=== PATIENT | female | born 1945 | race Caucasian/White ===

== ENCOUNTER 2022-11-14 14:01 | Inpatient (IN) | payer OTHER ==
[~2022-11-14] VITALS: Ht 162.6 cm; Wt 136.0 kg
[2022-11-14] MEDS ORDERED: dilTIAZem 25 MG/5 ML VIAL IV ONE (14:15)
[2022-11-14] MEDS ORDERED: ONDANSETRON HCL 4 MG/2 ML VIAL IV ONE (14:15)
[2022-11-14 14:59] LABS: Basophils # (auto) 0.1 10 ^3/uL (0-0.2); Basophils % (auto) 0.8 % (0.0-2.0); Eosinophils # (auto) 0.2 10 ^3/uL (0-0.8); Eosinophils % (auto) 2.2 % (0.0-7.0); Hematocrit 44.8 % (36.0-46.0); Hemoglobin 14.7 g/dL (12.2-16.2); Lymphocytes # (auto) 1.6 10 ^3/uL (0.4-5.4); Lymphocytes % (auto) 17.1 % (10.0-50.0); Mean Corpuscular Hemoglobin 28.5 pg (28.0-32.0); Mean Corpuscular Hgb Conc. 32.7 g/dL (32.0-36.0); Mean Corpuscular Volume 87.3 fL (80.0-100.0); Monocytes # (auto) 0.8 10 ^3/uL (0-1.3); Neutrophils # (auto) 6.7 10 ^3/uL (1.6-8.6); Neutrophils % (auto) 70.9 % (37.0-80.0); Nucleated Red Blood Cells % 0.1 %; Red Blood Cells 5.14 10^6/uL (4.0-5.20); Red Cell Distribution Width 13.9 % (11.8-14.3); White Blood Cell 9.5 10^3/uL (4.4-10.8)
[2022-11-14] MEDS ORDERED: METOPROLOL TARTRATE 1MG/1ML-5ML VIAL IV ONE (15:00)
[2022-11-14 15:06] LABS: Albumin 3.1 g/dL (3.4-5.0); Calcium 8.7 mg/dL (8.5-10.1); Magnesium 2.4 mg/dL (1.6-2.6); Potassium 5.1 mmol/L (3.5-5.1)
[2022-11-14 15:10] LABS: BUN/Creatinine Ratio 33.7 (10.0-20.0); Bilirubin, Total 0.9 mg/dL (0.2-1.0); CRP High Sensitivity 0.9 mg/dL (< 0.3); Total Protein 6.9 g/dL (6.4-8.2)
[2022-11-14 15:13] LABS: Lactic Acid w/Reflex 2.3 mmol/L (0.4-2.0)
[2022-11-14] MEDS ORDERED: dilTIAZem 125mg/125ml BAG KIT 125 ML IV ONE (15:15)
[2022-11-14 16:04] LABS: Urine Bacteria NONE SEEN /hpf (None Seen); Urine Blood Negative /uL (Negative); Urine Mucus FEW (None Seen); Urine Specific Gravity 1.031 (1.001-1.035); Urine WBC 6 /hpf (0 - 5)
[2022-11-14] MEDS ORDERED: ASPirin 81 mg TAB PO ONE (16:15)
[2022-11-14] MEDS ORDERED: AMIODARONE HCL 150 MG in D5W 5% 100 ML IV ONE (17:15)
[2022-11-14] MEDS ORDERED: AMIODARONE 450mg/250ml AE 250 ML IV SCH (17:30)
[2022-11-14] MEDS ORDERED: FUROSEMIDE 20 MG/2 ML VIAL IV SCH (18:15)
[2022-11-14] MEDS ORDERED: NITROGLYCERIN 0.4 MG SL TAB SL PRN (18:15)
[2022-11-14] MEDS ORDERED: MORPHINE SULFATE INJ 2 MG/ml SYRG IV PRN (18:15)
[2022-11-14] MEDS ORDERED: MET25T PO (19:09)
[2022-11-14] MEDS ORDERED: ATO40T PO (19:09)
[2022-11-14] MEDS ORDERED: DEXTROSE (50%) 50ML SYRG IV PRN (19:15)
[2022-11-14 19:48] LABS: Cholesterol 150 mg/dL (< 200)
[2022-11-14 19:50] LABS: HDL Cholesterol 48 mg/dL (40-59); LDL Cholesterol 84 mg/dL (< 100); Triglycerides 127 mg/dL (< 150)
[2022-11-14 20:04] LABS: INR 0.97 (0.9-1.15)
[2022-11-14] MEDS ORDERED: ONDANSETRON HCL 4 MG/2 ML VIAL IM ONE (21:00)
[2022-11-14] MEDS: SODIUM CHLORIDE 0.9% 1,000 ML IV SCH (21:01)
[2022-11-14] MEDS ORDERED: TAMSULOSIN HYDROCHLORIDE 0.4 MG CAP PO ONE (21:15)
[2022-11-14] MEDS ORDERED: IOHEXOL 350 MG/ML 100ML IJ ONE (21:35)
[2022-11-14] MEDS: ACCU-CHEK COMFORT CURVE STRIP VI SCH (22:06)
[2022-11-14] MEDS: InsuLIN REG 1unit/0.01ml Soln (100units/ml) SC SCH (22:16)
[2022-11-14] MEDS: ENOXAPARIN SOD 120 MG/0.8 ML SYRINGE SC SCH (22:44)
[2022-11-14] MEDS: AMIODARONE 450mg/250ml AE 250 ML IV SCH (23:30)
[2022-11-15] VITALS (8 sets, daily range): BP systolic 109–135; BP diastolic 56–96
[2022-11-15] MEDS ORDERED: APIX5TAB PO (03:19)
[2022-11-15] MEDS ORDERED: METF-372 PO (03:19)
[2022-11-15] MEDS: ACCU-CHEK COMFORT CURVE STRIP VI SCH ×4 (06:33→21:33)
[2022-11-15] MEDS: InsuLIN REG 1unit/0.01ml Soln (100units/ml) SC SCH ×4 (06:36→21:55)
[2022-11-15 06:38] LABS: Albumin 3.1 g/dL (3.4-5.0); Calcium 8.6 mg/dL (8.5-10.1); Potassium 4.1 mmol/L (3.5-5.1)
[2022-11-15 06:42] LABS: BUN/Creatinine Ratio 29.9 (10.0-20.0); Bilirubin, Total 1.1 mg/dL (0.2-1.0); Total Protein 6.3 g/dL (6.4-8.2)
[2022-11-15 06:51] LABS: Basophils # (auto) 0.1 10 ^3/uL (0-0.2); Basophils % (auto) 0.5 % (0.0-2.0); Eosinophils # (auto) 0.1 10 ^3/uL (0-0.8); Eosinophils % (auto) 0.6 % (0.0-7.0); Hematocrit 40.1 % (36.0-46.0); Hemoglobin 13.2 g/dL (12.2-16.2); Lymphocytes # (auto) 1.4 10 ^3/uL (0.4-5.4); Lymphocytes % (auto) 11.3 % (10.0-50.0); Mean Corpuscular Hemoglobin 28.5 pg (28.0-32.0); Mean Corpuscular Volume 86.3 fL (80.0-100.0); Monocytes # (auto) 1.3 10 ^3/uL (0-1.3); Monocytes % (auto) 10.6 % (0.0-12.0); Neutrophils # (auto) 9.3 10 ^3/uL (1.6-8.6); Red Blood Cells 4.64 10^6/uL (4.0-5.20); Red Cell Distribution Width 13.7 % (11.8-14.3)
[2022-11-15] MEDS ORDERED: DIGOXIN (250MCG/ML) 2 ML AMPULE IV ONE (08:00)
[2022-11-15] MEDS ORDERED: hydrALAZINE HCL 20 MG/ML VL IV PRN (10:00)
[2022-11-15] MEDS: FUROSEMIDE 40 MG/4 ML VIAL IV SCH (11:28)
[2022-11-15] MEDS: PANTOPRAZOLE 40 MG/10 ML VIAL INJ IV SCH (11:36)
[2022-11-15] MEDS: POTASSIUM CHLORIDE 8 MEQ TAB PO SCH (11:37)
[2022-11-15] MEDS: ASPirin 81 mg TAB PO SCH (11:38)
[2022-11-15] MEDS: ENOXAPARIN SOD 120 MG/0.8 ML SYRINGE SC SCH ×2 (11:42→21:33)
[2022-11-15] MEDS: SODIUM CHLORIDE 0.9% 1,000 ML IV SCH (11:50)
[2022-11-15] MEDS ORDERED: METOPROLOL TARTRATE 1MG/1ML-5ML VIAL IV ONE (17:15)
[2022-11-15] MEDS: AMIODARONE 450mg/250ml AE 250 ML IV SCH ×2 (17:15→23:38)
[2022-11-16] MEDS: SODIUM CHLORIDE 0.9% 1,000 ML IV SCH ×2 (03:35→20:15)
[2022-11-16 05:00] VITALS: BP_SYST 129; BP_SYST 149; BP_DIAS 64; BP_DIAS 70
[2022-11-16 05:55] LABS: Basophils # (auto) 0.1 10 ^3/uL (0-0.2); Basophils % (auto) 0.6 % (0.0-2.0); Eosinophils # (auto) 0.1 10 ^3/uL (0-0.8); Eosinophils % (auto) 1.1 % (0.0-7.0); Hematocrit 38.8 % (36.0-46.0); Hemoglobin 12.9 g/dL (12.2-16.2); Lymphocytes # (auto) 1.3 10 ^3/uL (0.4-5.4); Lymphocytes % (auto) 9.5 % (10.0-50.0); Mean Corpuscular Hemoglobin 28.4 pg (28.0-32.0); Mean Corpuscular Hgb Conc. 33.3 g/dL (32.0-36.0); Mean Corpuscular Volume 85.3 fL (80.0-100.0); Monocytes # (auto) 1.3 10 ^3/uL (0-1.3); Monocytes % (auto) 9.8 % (0.0-12.0); Neutrophils # (auto) 10.5 10 ^3/uL (1.6-8.6); Red Blood Cells 4.54 10^6/uL (4.0-5.20); Red Cell Distribution Width 13.6 % (11.8-14.3); White Blood Cell 13.3 10^3/uL (4.4-10.8)
[2022-11-16 06:19] LABS: BUN/Creatinine Ratio 24.8 (10.0-20.0); Calcium 8.8 mg/dL (8.5-10.1); Potassium 3.8 mmol/L (3.5-5.1)
[2022-11-16] MEDS: ACCU-CHEK COMFORT CURVE STRIP VI SCH ×4 (06:37→21:50)
[2022-11-16] MEDS: InsuLIN REG 1unit/0.01ml Soln (100units/ml) SC SCH ×4 (06:37→21:51)
[2022-11-16 08:52] VITALS: BP 138/66
[2022-11-16] MEDS ORDERED: TRAZ-228 PO (09:02)
[2022-11-16] MEDS ORDERED: GLIP10TA21 PO (09:02)
[2022-11-16] MEDS ORDERED: LISI-285 PO (09:02)
[2022-11-16] MEDS ORDERED: ATOR40TA52 PO (09:02)
[2022-11-16] MEDS ORDERED: DOCU-265 PO (09:02)
[2022-11-16] MEDS ORDERED: HYDROcodone-ACET 5/325MG TAB PO PRN (09:15)
[2022-11-16] MEDS: POTASSIUM CHLORIDE 8 MEQ TAB PO SCH (09:19)
[2022-11-16] MEDS: PANTOPRAZOLE 40 MG/10 ML VIAL INJ IV SCH (09:19)
[2022-11-16] MEDS: ASPirin 81 mg TAB PO SCH (09:19)
[2022-11-16] MEDS: FUROSEMIDE 40 MG/4 ML VIAL IV SCH (09:20)
[2022-11-16] MEDS: ENOXAPARIN SOD 120 MG/0.8 ML SYRINGE SC SCH ×2 (09:20→21:43)
[2022-11-16 10:09] LABS: Albumin 2.7 g/dL (3.4-5.0)
[2022-11-16 10:12] LABS: Bilirubin, Direct 0.5 mg/dL (0-0.2); Bilirubin, Total 1.3 mg/dL (0.2-1.0); Total Protein 5.9 g/dL (6.4-8.2)
[2022-11-16 10:23] LABS: Hepatitis B Surface Antibody Negative (Negative)
[2022-11-16] MEDS: DOXYCYCLINE 100MG/250ML 250 ML IV SCH ×2 (11:04→21:42)
[2022-11-16 13:00] VITALS: BP 122/63
[2022-11-16 13:59] LABS: Hepatitis B Core IgM Negative
[2022-11-16 14:00] LABS: Hepatitis C Antibody Negative (Negative)
[2022-11-16] MEDS ORDERED: DIGOXIN (250MCG/ML) 2 ML AMPULE IV ONE (14:45)
[2022-11-16] MEDS ORDERED: metOLazone 5 MG TAB PO ONE (14:45)
[2022-11-16] MEDS: AMIODARONE 450mg/250ml AE 250 ML IV SCH (16:33)
[2022-11-16 16:48] LABS: Hepatitis A Ab IgM Negative
[2022-11-16 17:13] VITALS: BP 140/65
[2022-11-16 20:00] VITALS: BP 129/60
[2022-11-16 22:00] VITALS: BP 129/60
[2022-11-17 04:56] VITALS: BP 126/71
[2022-11-17 05:40] LABS: Basophils # (auto) 0.1 10 ^3/uL (0-0.2); Basophils % (auto) 1.2 % (0.0-2.0); Eosinophils # (auto) 0.2 10 ^3/uL (0-0.8); Eosinophils % (auto) 1.7 % (0.0-7.0); Hematocrit 39.8 % (36.0-46.0); Hemoglobin 13.3 g/dL (12.2-16.2); Lymphocytes # (auto) 1.7 10 ^3/uL (0.4-5.4); Lymphocytes % (auto) 14.5 % (10.0-50.0); Mean Corpuscular Hemoglobin 28.4 pg (28.0-32.0); Mean Corpuscular Hgb Conc. 33.4 g/dL (32.0-36.0); Mean Corpuscular Volume 84.8 fL (80.0-100.0); Monocytes # (auto) 1.6 10 ^3/uL (0-1.3); Monocytes % (auto) 13.2 % (0.0-12.0); Neutrophils # (auto) 8.2 10 ^3/uL (1.6-8.6); Neutrophils % (auto) 69.4 % (37.0-80.0); Red Cell Distribution Width 13.7 % (11.8-14.3); White Blood Cell 11.9 10^3/uL (4.4-10.8)
[2022-11-17 05:57] LABS: Albumin 2.4 g/dL (3.4-5.0); Calcium 8.9 mg/dL (8.5-10.1); Potassium 3.6 mmol/L (3.5-5.1)
[2022-11-17 06:01] LABS: BUN/Creatinine Ratio 16.4 (10.0-20.0); Bilirubin, Total 1.4 mg/dL (0.2-1.0); Total Protein 5.9 g/dL (6.4-8.2)
[2022-11-17] MEDS: ACCU-CHEK COMFORT CURVE STRIP VI SCH ×2 (06:08→11:45)
[2022-11-17] MEDS: InsuLIN REG 1unit/0.01ml Soln (100units/ml) SC SCH ×2 (06:16→11:47)
[2022-11-17] MEDS: AMIODARONE 450mg/250ml AE 250 ML IV SCH (07:16)
[2022-11-17 09:00] VITALS: BP 109/57
[2022-11-17] MEDS ORDERED: DOXY-286 PO (09:40)
[2022-11-17] MEDS ORDERED: FURO1TAB31 PO (09:40)
[2022-11-17] MEDS ORDERED: DIGO0.2525 PO (09:40)
[2022-11-17] MEDS ORDERED: POTA8TAB38 PO (09:40)
[2022-11-17] MEDS ORDERED: AMIO200T33 PO (09:40)
[2022-11-17] MEDS: PANTOPRAZOLE 40 MG/10 ML VIAL INJ IV SCH (09:47)
[2022-11-17] MEDS: ASPirin 81 mg TAB PO SCH (09:48)
[2022-11-17] MEDS: FUROSEMIDE 40 MG/4 ML VIAL IV SCH (09:48)
[2022-11-17] MEDS: POTASSIUM CHLORIDE 8 MEQ TAB PO SCH (09:48)
[2022-11-17] MEDS: ENOXAPARIN SOD 120 MG/0.8 ML SYRINGE SC SCH (09:48)
[2022-11-17] MEDS: DOXYCYCLINE 100MG/250ML 250 ML IV SCH (09:49)
[2022-11-17] MEDS: SODIUM CHLORIDE 0.9% 1,000 ML IV SCH (12:55)
[2022-11-17 13:02] VITALS: BP 109/57
[2022-11-17 14:30] VITALS: BP 115/66
== END 2022-11-17 12:14 | disposition hospice, home (50) | DRG 280 ==
LOC: EDBD 14:01 → ER 14:01 → TELE 19:09 → TELE-EAST 23:57
PROVIDERS: ADMIT Registered Nurse; ATTEND Internal Medicine
DX: I48.91 Unspecified atrial fibrillation (principal); I26.99 Other pulmonary embolism without acute cor pulmonale; I21.A1 Myocardial infarction type 2; N17.0 Acute kidney failure with tubular necrosis; L03.116 Cellulitis of left lower limb; N20.2 Calculus of kidney with calculus of ureter; Z68.43 Body mass index [BMI] 50.0-59.9, adult; E11.9 Type 2 diabetes mellitus without complications; E66.01 Morbid (severe) obesity due to excess calories; E78.5 Hyperlipidemia, unspecified; E86.0 Dehydration; I11.0 Hypertensive heart disease with heart failure; K42.9 Umbilical hernia without obstruction or gangrene; R09.02 Hypoxemia; I08.1 Rheumatic disorders of both mitral and tricuspid valves; I50.82 Biventricular heart failure; Z51.5 Encounter for palliative care; Z87.442 Personal history of urinary calculi; Z90.49 Acquired absence of other specified parts of digestive tract; Z79.01 Long term (current) use of anticoagulants; Z79.899 Other long term (current) drug therapy
CPT/HCPCS: 36415; 71045; 71275; 74176; 76604; 80048; 80053; 80061; 80076; 81001; 82962; 83036; 83605; 83735; 83880; 84443; 84484; 85025; 85379; 85610; 85730; 86141; 86705; 86706; 86709; 86803; 87040; 87340; 93005; 93306; 93970; 96365; 96366; 96367; 96375; C9113; G0378; J1815; J2405; J3490; J7060

== ENCOUNTER 2022-11-17 18:41 | Inpatient (IN) | payer OTHER ==
[~2022-11-17] VITALS: Ht 154.9 cm; Wt 58.6 kg
[~2022-11-17 18:41] MED LIST: AMIO200T33 PO; APIX5TAB PO; ATO40T PO; DIGO0.2525 PO; DOCU-265 PO; DOXY-286 PO; FURO1TAB31 PO; GLIP10TA21 PO; LISI-285 PO; MET25T PO; POTA8TAB38 PO; TRAZ-228 PO
[2022-11-17] MEDS ORDERED: MORPHINE SULFATE INJ 2 MG/ml SYRG IV ONE ×3 (19:15→23:00)
[2022-11-17 19:28] LABS: Basophils # (auto) 0.1 10 ^3/uL (0-0.2); Basophils % (auto) 0.7 % (0.0-2.0); Eosinophils # (auto) 0.3 10 ^3/uL (0-0.8); Eosinophils % (auto) 1.9 % (0.0-7.0); Hematocrit 45.2 % (36.0-46.0); Hemoglobin 15.1 g/dL (12.2-16.2); Lymphocytes # (auto) 3.5 10 ^3/uL (0.4-5.4); Lymphocytes % (auto) 23.6 % (10.0-50.0); Mean Corpuscular Hemoglobin 28.3 pg (28.0-32.0); Mean Corpuscular Hgb Conc. 33.3 g/dL (32.0-36.0); Mean Corpuscular Volume 84.9 fL (80.0-100.0); Monocytes # (auto) 2.1 10 ^3/uL (0-1.3); Neutrophils % (auto) 59.8 % (37.0-80.0); Nucleated Red Blood Cells % 0.1 %; Red Blood Cells 5.33 10^6/uL (4.0-5.20); Red Cell Distribution Width 13.5 % (11.8-14.3)
[2022-11-17 19:39] LABS: Calcium 9.3 mg/dL (8.5-10.1); Magnesium 1.9 mg/dL (1.6-2.6); Potassium 3.7 mmol/L (3.5-5.1)
[2022-11-17 19:51] LABS: BUN/Creatinine Ratio 16.7 (10.0-20.0); Bilirubin, Total 1.4 mg/dL (0.2-1.0); Total Protein 7.1 g/dL (6.4-8.2)
[2022-11-17 20:02] LABS: INR 1.1 (0.9-1.15); Partial Thromboplastin Time 33.8 sec (24.6-33.4)
[2022-11-17] MEDS ORDERED: NITROGLYCERIN 0.4 MG SL TAB SL ONE (20:15)
[2022-11-17] MEDS ORDERED: ASPirin 325 MG TAB PO ONE (21:00)
[2022-11-17] MEDS ORDERED: dilTIAZem 25 MG/5 ML VIAL IV ONE (21:00)
[2022-11-17] MEDS ORDERED: MORPHINE SULFATE INJ 2 MG/ml SYRG ONE (21:12)
[2022-11-17] MEDS ORDERED: dilTIAZem 125mg/125ml BAG KIT 125 ML IV ONE (21:15)
[2022-11-17] MEDS: dilTIAZem 125mg/125ml BAG KIT 125 ML IV SCH (21:20)
[2022-11-17] MEDS ORDERED: MORPHINE SULFATE 4 MG/ML SYR/VIAL ONE (21:32)
[2022-11-17] MEDS ORDERED: ONDANSETRON HCL 4 MG/2 ML VIAL ONE (21:33)
[2022-11-17] MEDS ORDERED: LORazepam 2MG/ML-1ML VIAL ONE (21:35)
[2022-11-17] MEDS: LORazepam 2MG/ML-1ML VIAL IV PRN (21:42)
[2022-11-17] MEDS: MORPHINE SULFATE 4 MG/ML SYR/VIAL IV PRN (21:42)
[2022-11-18] MEDS ORDERED: MORPHINE SULFATE INJ 2 MG/ml SYRG IV PRN (01:00)
[2022-11-18] MEDS ORDERED: cefTRIAXone 1GM/50ML D5W 50 ML IV ONE (01:00)
[2022-11-18] MEDS ORDERED: AZITHROMYCIN 500MG/ 250ML 250 ML IV ONE (01:00)
[2022-11-18] MEDS ORDERED: DEXTROSE (50%) 50ML SYRG IV PRN (01:00)
[2022-11-18] MEDS ORDERED: DOCUSATE SOD 100 MG CAP PO PRN (01:00)
[2022-11-18] MEDS ORDERED: NITROGLYCERIN 0.4 MG SL TAB SL PRN (01:00)
[2022-11-18] MEDS: LORazepam 2MG/ML-1ML VIAL IV PRN (01:45)
[2022-11-18] MEDS: MORPHINE SULFATE 4 MG/ML SYR/VIAL IV PRN (01:46)
[2022-11-18] MEDS ORDERED: ONDANSETRON HCL 4 MG/2 ML VIAL IV ONE (02:00)
[2022-11-18 04:06] LABS: Basophils # (auto) 0.2 10 ^3/uL (0-0.2); Eosinophils # (auto) 0 10 ^3/uL (0-0.8); Eosinophils % (auto) 0.2 % (0.0-7.0); Lymphocytes # (auto) 0.9 10 ^3/uL (0.4-5.4); Lymphocytes % (auto) 6.2 % (10.0-50.0); Mean Corpuscular Hemoglobin 28.2 pg (28.0-32.0); Mean Corpuscular Hgb Conc. 33.4 g/dL (32.0-36.0); Mean Corpuscular Volume 84.6 fL (80.0-100.0); Monocytes # (auto) 1.2 10 ^3/uL (0-1.3); Monocytes % (auto) 7.9 % (0.0-12.0); Neutrophils # (auto) 12.9 10 ^3/uL (1.6-8.6); Neutrophils % (auto) 84.7 % (37.0-80.0); Nucleated Red Blood Cells % 0.2 %; Red Blood Cells 4.96 10^6/uL (4.0-5.20); Red Cell Distribution Width 13.7 % (11.8-14.3); White Blood Cell 15.2 10^3/uL (4.4-10.8)
[2022-11-18 04:22] LABS: Albumin 2.7 g/dL (3.4-5.0); Calcium 8.5 mg/dL (8.5-10.1); Potassium 4.2 mmol/L (3.5-5.1)
[2022-11-18 04:26] LABS: BUN/Creatinine Ratio 17.8 (10.0-20.0); Bilirubin, Total 0.9 mg/dL (0.2-1.0); Total Protein 6.6 g/dL (6.4-8.2)
[2022-11-18] MEDS: SODIUM CHLOR 0.9% PF (SALINE LOCK) 10ML VIAL/SYR IV SCH ×3 (06:13→22:13)
[2022-11-18] MEDS: dilTIAZem 125mg/125ml BAG KIT 125 ML IV SCH (07:12)
[2022-11-18] MEDS: ACCU-CHEK COMFORT CURVE STRIP VI SCH ×4 (07:24→22:20)
[2022-11-18] MEDS: InsuLIN REG 1unit/0.01ml Soln (100units/ml) SC SCH ×4 (07:28→22:20)
[2022-11-18] MEDS: cefTRIAXone 1GM/50ML D5W 50 ML IV SCH (09:35)
[2022-11-18] MEDS ORDERED: CARVEDILOL 3.125 MG TAB PO SCH (10:00)
[2022-11-18] MEDS: AZITHROMYCIN 500MG/ 250ML 250 ML IV SCH (10:05)
[2022-11-18] MEDS: ASPirin 81 mg TAB PO SCH (10:05)
[2022-11-18] MEDS: FUROSEMIDE 40 MG/4 ML VIAL IV SCH (10:05)
[2022-11-18] MEDS: HEPARIN SODIUM (PORCINE) 5000 UNITS/ML 1ML VIAL SC SCH ×2 (10:12→22:16)
[2022-11-18] MEDS: ONDANSETRON HCL 4 MG/2 ML VIAL IV PRN ×2 (10:17→15:15)
[2022-11-18] MEDS ORDERED: AMIODARONE HCL 150 MG in D5W 5% 100 ML IV ONE (13:15)
[2022-11-18] MEDS ORDERED: AMIODARONE 450mg/250ml AE 250 ML IV SCH (13:30)
[2022-11-18 17:00] VITALS: BP 109/79
[2022-11-18 17:15] VITALS: BP 109/79
[2022-11-18] MEDS: AMIODARONE 450mg/250ml AE 250 ML IV SCH (19:30)
[2022-11-18 22:00] VITALS: BP 154/83
[2022-11-19] MEDS ORDERED: METOPROLOL TARTRATE 1MG/1ML-5ML VIAL IV ONE (03:30)
[2022-11-19 05:00] VITALS: BP 115/76
[2022-11-19 05:22] LABS: Albumin 2.4 g/dL (3.4-5.0); Calcium 8.6 mg/dL (8.5-10.1); Potassium 3.5 mmol/L (3.5-5.1)
[2022-11-19 05:27] LABS: BUN/Creatinine Ratio 22.8 (10.0-20.0); Bilirubin, Total 0.8 mg/dL (0.2-1.0); Total Protein 6.4 g/dL (6.4-8.2)
[2022-11-19 05:31] LABS: Basophils # (auto) 0.1 10 ^3/uL (0-0.2); Basophils % (auto) 0.5 % (0.0-2.0); Eosinophils # (auto) 0.4 10 ^3/uL (0-0.8); Eosinophils % (auto) 2.7 % (0.0-7.0); Hematocrit 41.2 % (36.0-46.0); Hemoglobin 13.8 g/dL (12.2-16.2); Lymphocytes # (auto) 1.5 10 ^3/uL (0.4-5.4); Lymphocytes % (auto) 11.5 % (10.0-50.0); Mean Corpuscular Hemoglobin 28.4 pg (28.0-32.0); Mean Corpuscular Hgb Conc. 33.5 g/dL (32.0-36.0); Mean Corpuscular Volume 84.8 fL (80.0-100.0); Monocytes # (auto) 1.8 10 ^3/uL (0-1.3); Monocytes % (auto) 13.7 % (0.0-12.0); Neutrophils # (auto) 9.5 10 ^3/uL (1.6-8.6); Neutrophils % (auto) 71.6 % (37.0-80.0); Nucleated Red Blood Cells % 0.1 %; Red Blood Cells 4.86 10^6/uL (4.0-5.20); Red Cell Distribution Width 13.5 % (11.8-14.3); White Blood Cell 13.3 10^3/uL (4.4-10.8)
[2022-11-19] MEDS: SODIUM CHLOR 0.9% PF (SALINE LOCK) 10ML VIAL/SYR IV SCH ×3 (06:18→21:49)
[2022-11-19] MEDS: ACCU-CHEK COMFORT CURVE STRIP VI SCH ×4 (06:18→21:56)
[2022-11-19] MEDS: InsuLIN REG 1unit/0.01ml Soln (100units/ml) SC SCH ×4 (06:23→22:02)
[2022-11-19] MEDS: cefTRIAXone 1GM/50ML D5W 50 ML IV SCH (08:46)
[2022-11-19] MEDS: HYDROcodone-ACET 5/325MG TAB PO PRN ×2 (08:47→16:48)
[2022-11-19] MEDS: AMIODARONE 450mg/250ml AE 250 ML IV SCH (08:54)
[2022-11-19 09:00] VITALS: BP 135/72
[2022-11-19] MEDS: ASPirin 81 mg TAB PO SCH (10:54)
[2022-11-19] MEDS: AZITHROMYCIN 500MG/ 250ML 250 ML IV SCH (10:54)
[2022-11-19] MEDS: FUROSEMIDE 40 MG/4 ML VIAL IV SCH (10:54)
[2022-11-19] MEDS: HEPARIN SODIUM (PORCINE) 5000 UNITS/ML 1ML VIAL SC SCH ×2 (11:07→21:56)
[2022-11-19] MEDS ORDERED: DIGOXIN (250MCG/ML) 2 ML AMPULE IV ONE (11:45)
[2022-11-19] MEDS ORDERED: METOPROLOL TARTRATE 25 MG TAB PO ONE (11:51)
[2022-11-19 12:30] VITALS: BP 163/84
[2022-11-19] MEDS ORDERED: DIGOXIN 0.25 MG TAB PO ONE (12:45)
[2022-11-19 18:16] VITALS: BP 114/77
[2022-11-19] MEDS: METOPROLOL TARTRATE 25 MG TAB PO SCH (21:49)
[2022-11-19 22:00] VITALS: BP 100/36
[2022-11-20] MEDS: AMIODARONE 450mg/250ml AE 250 ML IV SCH (01:58)
[2022-11-20 05:00] VITALS: BP 126/60
[2022-11-20] MEDS: SODIUM CHLOR 0.9% PF (SALINE LOCK) 10ML VIAL/SYR IV SCH ×3 (06:42→21:40)
[2022-11-20] MEDS: ACCU-CHEK COMFORT CURVE STRIP VI SCH ×4 (06:44→21:38)
[2022-11-20] MEDS: InsuLIN REG 1unit/0.01ml Soln (100units/ml) SC SCH ×4 (06:45→21:40)
[2022-11-20 08:00] VITALS: BP 120/81
[2022-11-20] MEDS: FUROSEMIDE 40 MG/4 ML VIAL IV SCH (09:54)
[2022-11-20] MEDS: ASPirin 81 mg TAB PO SCH (09:54)
[2022-11-20] MEDS: cefTRIAXone 1GM/50ML D5W 50 ML IV SCH (09:54)
[2022-11-20] MEDS: HYDROcodone-ACET 5/325MG TAB PO PRN (09:55)
[2022-11-20] MEDS: DIGOXIN 0.125 MG TAB PO SCH (09:55)
[2022-11-20] MEDS: METOPROLOL TARTRATE 25 MG TAB PO SCH ×2 (09:55→21:38)
[2022-11-20] MEDS: HEPARIN SODIUM (PORCINE) 5000 UNITS/ML 1ML VIAL SC SCH (10:05)
[2022-11-20] MEDS: AZITHROMYCIN 500MG/ 250ML 250 ML IV SCH (11:54)
[2022-11-20 12:00] VITALS: BP 114/67
[2022-11-20] MEDS ORDERED: AMIO200T33 PO (14:28)
[2022-11-20] MEDS ORDERED: RIV15T PO (14:28)
[2022-11-20] MEDS ORDERED: RIVAROXABAN 15 MG TAB PO SCH (14:30)
[2022-11-20 16:00] VITALS: BP 128/51
[2022-11-20] MEDS: AMIODARONE HCL 200 MG TAB PO SCH ×2 (17:26→21:37)
[2022-11-20] MEDS: APIXABAN 5 MG TAB PO SCH (21:37)
[2022-11-21 00:42] VITALS: BP 99/64
[2022-11-21 05:24] VITALS: BP 96/57
[2022-11-21] MEDS: SODIUM CHLOR 0.9% PF (SALINE LOCK) 10ML VIAL/SYR IV SCH (06:09)
[2022-11-21] MEDS: InsuLIN REG 1unit/0.01ml Soln (100units/ml) SC SCH ×2 (06:15→12:47)
[2022-11-21] MEDS: ACCU-CHEK COMFORT CURVE STRIP VI SCH ×2 (06:17→12:44)
[2022-11-21] MEDS: cefTRIAXone 1GM/50ML D5W 50 ML IV SCH (08:32)
[2022-11-21] MEDS: ASPirin 81 mg TAB PO SCH (08:38)
[2022-11-21] MEDS: APIXABAN 5 MG TAB PO SCH (08:38)
[2022-11-21] MEDS: DIGOXIN 0.125 MG TAB PO SCH (08:38)
[2022-11-21] MEDS: AMIODARONE HCL 200 MG TAB PO SCH (08:39)
[2022-11-21 09:00] VITALS: BP 89/71
[2022-11-21 12:34] VITALS: BP 116/83
[2022-11-27] MEDS ORDERED: APIXABAN 5 MG TAB PO SCH (22:00)
== END 2022-11-21 13:03 | disposition hospice, home (50) | DRG 280 ==
LOC: ER 18:41 → EDBD 18:41 → TELE 11-18 01:03 → TELE-WESTW 11-18 16:23
PROVIDERS: ADMIT Nurse Practitioner Family; ATTEND Hospitalist
DX: I21.4 Non-ST elevation (NSTEMI) myocardial infarction (principal); I26.99 Other pulmonary embolism without acute cor pulmonale; J96.01 Acute respiratory failure with hypoxia; N17.9 Acute kidney failure, unspecified; I13.0 Hypertensive heart and chronic kidney disease with heart failure and stage 1 through stage 4 chronic kidney disease, or unspecified chronic kidney disease; I48.20 Chronic atrial fibrillation, unspecified; I50.22 Chronic systolic (congestive) heart failure; I50.82 Biventricular heart failure; N18.9 Chronic kidney disease, unspecified; E66.01 Morbid (severe) obesity due to excess calories; E78.5 Hyperlipidemia, unspecified; E11.22 Type 2 diabetes mellitus with diabetic chronic kidney disease; Z51.5 Encounter for palliative care; Z87.442 Personal history of urinary calculi; Z79.899 Other long term (current) drug therapy; Z79.2 Long term (current) use of antibiotics; I36.1 Nonrheumatic tricuspid (valve) insufficiency; Z79.01 Long term (current) use of anticoagulants; Z68.24 Body mass index [BMI] 24.0-24.9, adult
CPT/HCPCS: 36415; 71045; 80053; 80162; 82962; 83735; 83880; 84484; 85025; 85610; 85730; 87040; 93005; 96374; 96375; 96376; G0378; J0696; J1815; J2405; J7060

== ENCOUNTER 2024-11-25 17:56 | Inpatient (IN) | payer OTHER ==
[~2024-11-25] VITALS: Ht 162.6 cm; Wt 113.6 kg
[~2024-11-25 17:56] MED LIST changes: -APIX5TAB PO; -ATO40T PO; +ATOR-507 PO; +METF-372 PO; +RIV15T PO
[2024-11-25 18:51] VITALS: PULSE 56; RESP 11; O2SAT 100
--- NOTE | 2024-11-25 19:02 | ED.PDOC ---
GI ASSESSMENT HPI Comments 79y F who presents to the ED via EMS for chief complaint of n/v/d for 1 month worse in the last few days. - EMS states pt is resident at [facility] and states pt has been having nausea, vomiting and diarrhea for the past 1 month. - pt states she has also been having assocoaited generalized malaise and noted tremors for the past 2 weeks - EMS arrived on scene and after checking vitals, has noted BP of 71/46 with heart rate of 64 and pt was given 200 ml of fluids and 4 mg zofran and brought to the ED - pt in the ED, states she has been having vomiting all day today -pt in the ED, otherwise is noted to bed bound Patient states she informed the staff there multiple times but they have ignored her complaints. Past Medical history: HTN, HLD, DM 2, CHF, SD x2, depression, Past Surgical history: cholecystectomy Medications: Includes Lasix, amiodarone, hydrocortisone, aspirin Allergies: denies Social History: denies ETOH, denies tobacco use, denies drug use HPI: Poor Historian. REVIEW OF SYSTEMS: CONSTITUTIONAL: Denies acute: fever, diaphoresis, HEAD: Denies acute: headache, photophobia Eyes: Denies acute: Double vision, vision loss, eye pain, eye discharge. EARS: Denies acute: tinnitus, hearing loss, ear discharge, ear pain, THROAT: Denies acute: sore throat, swelling, difficulty swallowing , pain with swallowing, change in voice. NECK: Denies acute: neck pain, neck swelling, stiff neck. HEART: Denies acute : chest pain, palpitations, LUNGS: Denies acute: SOB, wheezing, cough, hemoptysis ABDOMEN: Denies acute: abdominal pain, melena , hematemesis, hematochezia SKIN: Denies acute: rash, redness, lesions, itchiness. EXTREMITIES: Denies acute: calf pain, numbness, tingling, weakness, denies pain in extremity. Denies acute: Low back pain. Neuro: Denies acute: focal neurological deficit, motor or sensory focal neurological deficit, seizure like activity, confusion, dizziness, change in mental status, loss of bowel or bladder function, cauda equina like symptoms. : Denies acute: dysuria, hematuria, flank pain, increase in urinary frequency. PSYCH: Denies acute: hallucination, suicidal ideation, homicidal ideation. FEMALE: Denies acute: abnormal vaginal bleeding, foul odor, unusual discharge. PHYSICAL EXAM: General: ----[id number]----acute distress, awake and alert. Head: normocephalic, atraumatic. Neck: supple, trachea is midline, no swelling. Throat: Normal phonation. Eyes:, no erythema, no purulent discharge, no proptosis, no icterus. Heart: regular rate, regular rhythm, no significant murmur appreciated. Lungs: no apparent respiratory distress, Able to speak in full sentences. No wheezing, no rhonchi, no crackles. No stridors Clear to auscultation bilaterally. Abdomen: non tender to palpation, non distended, soft, no guarding, no rebound, + bowel sounds. Morbidly obese Neuro: Awake, Alert, oriented to name, self, situation, follows commands GCS=15. Speech is normal. Skin: no petechia, no purpura, no cyanosis, slightly-pale, not jaundice. Lower extremities: --no - Pitting edema no deformity, no focal swelling, no calf TTP. Makes eye contact. Patient is bed-bound. Face: no apparent facial droop. Pedal pulses are palpable. No nuchal rigidity, Kernig's sign, Brudzinski's sign, no meningeal signs. 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, Medications, Allergies Allergies: Coded Allergies: NO KNOWN ALLERGIES (Unverified , 11/14/22) Home Meds Reported Medications Metformin Hydrochloride (Metformin Hcl) 1,000 Mg Tab, 1 TAB PO BIDWM for 90 Days, #180 11/26/24 Trazodone Hcl (Trazodone Hcl) 100 Mg Tab, 2 TAB PO QHSP PRN for ANXIETY for 90 Days, #180 11/16/22 Metoprolol Tartrate (Lopressor) 25 Mg Tb, 1 TAB PO BID for 90 Days, #180 11/14/22 Atorvastatin Calcium (Lipitor) 40 Mg Tab, 1 TAB PO DAILY for 90 Days, #90 11/14/22 Information Source: Patient, Emergency Med Personnel Mode of Arrival: EMS Past Medical History PAST MEDICAL HISTORY: AFIB, CHF, DM, High Lipids, HTN, Kidney Stones Surgical History: Cholecystectomy PRICER History: Denies all PRICER Hx Family History Family History: Reviewed,noncontributory to illness Social History Smoker: Non-Smoker Alcohol: Denies ETOH Use Drugs: Denies Drug Use Lives In: Home Was a procedure done? Was a procedure done?: No GI differential Dx Differential Diagnosis: Other (DDX include Diverticulitis, colitis, gastroenteritis, acute abdomen, SBO, enteritis, constipation, volvulus, appendicitis, Gallbladder disease, choledocolithiasis, ascending cholangitis, pancreatitis, intraAbdominal mass/neoplasm, hepatitis, UTI, pylonephritis, kidney stone, aneurysm, dissection, Inflammatory bowel disease, gastroparesis, ischemic bowel, ovarian torsion, ovarian cyst/mass, tubo-ovarian abscess, infectious diarrhea, C difficile, electrolyte abnormality, ) X-Ray, Labs, Meds, VS Vital Signs Date Time Temp Pulse Resp B/P (MAP) Pulse Ox O2 Delivery O2 Flow Rate FiO2 11/25/24 20:00 56 11/25/24 19:43 56 14 100 Nasal Cannula* 3 32 11/25/24 19:30 98.0 56 14 119/34 (62) 100 98.0 11/25/24 18:51 56 11 117/36 (63) 100 11/25/24 18:51 56 11 100 Nasal Cannula* 2 28 11/25/24 18:29 60 11/25/24 18:20 98.5 64 18 71/46 (54) 96 98.5 Lab Test 11/25/24 20:11 11/25/24 19:08 11/25/24 18:35 Range/Units Troponin I High Sensitivity 21 21 </=34 ng/L White Blood Count 8.4 4.4-10.8 10^3/uL Red Blood Count 3.47 L 4.0-5.20 10^6/uL Hemoglobin 10.2 L 12.2-16.2 g/dL Hematocrit 31.1 L 36.0-46.0 % Mean Corpuscular Volume 89.6 80.0-100.0 fL Mean Corpuscular Hemoglobin 29.2 28.0-32.0 pg Mean Corpuscular Hemoglobin Concent 32.6 32.0-36.0 g/dL Red Cell Distribution Width 13.5 11.8-14.3 % Platelet Count 280 140-450 10^3/uL Mean Platelet Volume 8.9 6.9-10.8 fL Neutrophils (%) (Auto) 70.1 37.0-80.0 % Lymphocytes (%) (Auto) 13.8 10.0-50.0 % Monocytes (%) (Auto) 7.7 0.0-12.0 % Eosinophils (%) (Auto) 6.8 0.0-7.0 % Basophils (%) (Auto) 1.6 0.0-2.0 % Neutrophils # (Auto) 5.9 1.6-8.6 10 ^3/uL Lymphocytes # (Auto) 1.2 0.4-5.4 10 ^3/uL Monocytes # (Auto) 0.6 0-1.3 10 ^3/uL Eosinophils # (Auto) 0.6 0-0.8 10 ^3/uL Basophils # (Auto) 0.1 0-0.2 10 ^3/uL Nucleated Red Blood Cells 0.0 % Sodium Level 144 136-145 mmol/L Potassium Level 4.9 3.5-5.1 mmol/L Chloride Level 105 98-107 mmol/L Carbon Dioxide Level 23 20-31 mmol/L Anion Gap 16 H 5-15 Blood Urea Nitrogen 77 H 9-23 mg/dL Creatinine 6.19 H 0.550-1.02 mg/dL Glomerular Filtration Rate Calc 6 >90 mL/min BUN/Creatinine Ratio 12.4 10.0-20.0 Serum Glucose 68 L 74-106 mg/dL Lactic Acid Level 1.8 0.4-2.0 mmol/L Calcium Level 9.3 8.7-10.4 mg/dL Magnesium Level 2.1 1.6-2.6 mg/dL Total Bilirubin 0.3 0.2-1.0 mg/dL Aspartate Amino Transferase (AST) 32 13-40 U/L Alanine Aminotransferase (ALT) 39 7-40 U/L Alkaline Phosphatase 96 46-116 U/L B-Type Natriuretic Peptide 142.51 0-100 pg/mL Total Protein 5.6 L 5.7-8.2 g/dL Albumin 3.5 3.2-4.8 g/dL Lipase 50 12-53 U/L Urine Color Colorless Yellow Urine Clarity Turbid H Clear Urine pH 5.0 5.0-9.0 Urine Specific [place] 1.013 1.001-1.035 Urine Protein Trace H Negative Urine Ketones Negative Negative Urine Blood 3+ H Negative /uL Urine Nitrite Negative Negative Urine Bilirubin Negative Negative Urine Urobilinogen Normal Negative mg/dL Urine Leukocyte Esterase 3+ Negative /uL Urine RBC 24 0 - 4 /hpf Urine WBC Clumps Present None Seen /hpf Urine Microscopic WBC 39 H 0-5 /HPF Urine Squamous Epithelial Cells Few <5 /hpf Urine Amorphous Crystals Few None Seen /hpf Urine Bacteria Many H None Seen /hpf Urine Hyaline Casts Few 0 - 2 /lpf Urine Mucus Few None Seen Urine Glucose Normal Normal mg/dL Microbiology Date/Time Source Procedure Growth Status 11/25/24 19:08 Blood Blood Culture - Preliminary NO GROWTH AFTER 24 HOURS OF INCUBATION. Resulted 11/25/24 18:50 Blood Blood Culture - Preliminary NO GROWTH AFTER 24 HOURS OF INCUBATION. Resulted [place] [address] Ph: [phone] DIAGNOSTIC IMAGING Diagnostic Imaging Report : [id number] Signed PATIENT: GABRIELA CARRINGTON ACCT: [id number] UNIT: [id number] : 1945 LOC: ER ROOM / BED: / AGE / SEX: 79 / F ADM STATUS: REG ER SERVICE 32 ORDERING PHYSICIAN: HAIR FLOWERS DO PROCEDURE(s): ABPL - CT AB PEL WO CON-NO ORAL OR IV REASON: n/v/d ORDER NUMBER(s): [id number], ACCESSION NUMBER(s): [id number] Exam: CT CT AB PEL WO CON-NO ORAL OR IV History: n/v/d Comparison Study: CT CT AB PEL WO CON-NO ORAL OR IV on DOS: 11/14/22 TECHNIQUE: Multidetector CT of the abdomen was performed from lung bases to pubic symphysis. Imaging was performed without IV contrast. Axial, coronal and sagittal multiplanar reformats were obtained from the axial data set by the technologist. Radiation Dose Information: CT Dose: CTDI volume is 25.6 mGy. Dose-length product is 1459.18 mGy*cm FINDINGS: Evaluation of solid organs is limited due to lack of intravenous contrast use. Findings: Lung Bases: No acute or significant lung base finding. Normal heart size. No pleural or pericardial effusion. Liver: The liver is normal in size. No focal lesions. Gallbladder and Biliary Tree: Gallbladder has been surgically removed. Spleen: Unremarkable Pancreas: The pancreas is grossly normal in appearance. Adrenal Glands: Unremarkable Kidneys: Multiple calcifications in the right kidney.. Prominent calculus in the right renal pelvis measuring 14.8 x 18.6 mm Bladder: Ya catheter in the bladder. Bowel: The stomach is grossly normal in appearance. Small bowel and colon are normal in caliber and distribution. The appendix is not visualized; however, no secondary findings of acute appendicitis identified. Ascites: Absent Lymphadenopathy: No mesenteric, retroperitoneal or periportal lymphadenopathy. Abdominal Wall and Mesentery: 4.2 cm fat containing umbilical hernia. Vasculature: The visualized abdominal aorta is normal in size and caliber. Evaluation of abdominal and pelvic vessels is limited due to lack of intravenous contrast. Pelvic Organs: Unremarkable Musculoskeletal: No aggressive focal bony lesions, acute fractures or dislocation. Soft tissues: Unremarkable IMPRESSION: 1. Multiple right renal calculi. Largest measures 14 x 18 mm and is located in the renal pelvis. 2. Gallbladder has been surgically removed. 3. 4.2 cm fat containing umbilical hernia. 4. Ya catheter in the bladder. Radiation optimization: All CT scans at this facility use at least one of these dose optimization techniques: automated exposure control mA and/or kV a djustment per patient size (includes targeted exams where dose is matched to clinical indication) or iterative reconstruction. ATED BY: EDUARDO SARMIENTO Jr., DO DICTATED DATE/TIME: 11/25/242146 SIGNED BY: EDUARDO SARMIENTO Jr., SIGNED DATE/TIME: 11/25/242146 CC: [place] [address] Ph: [phone] DIAGNOSTIC IMAGING Diagnostic Imaging Report : [id number] Signed PATIENT: GABRIELA CARRINGTON ACCT: [id number] UNIT: [id number] : 1945 LOC: ER ROOM / BED: / AGE / SEX: 79 / F ADM STATUS: REG ER SERVICE 20 ORDERING PHYSICIAN: HAIR FLOWERS DO PROCEDURE(s): CXRP - CHEST PORTABLE REASON: weak, n/v hyptensive, ORDER NUMBER(s): [id number], ACCESSION NUMBER(s): [id number] CHEST RADIOGRAPH Indication: weak, n/v hyptensive, Technique: Single frontal view of the chest was obtained Comparison: XY CHEST PORTABLE on DOS: 11/17/22, XY CHEST PORTABLE on DOS: 11/15/22, XY CHEST PORTABLE on DOS: 11/14/22 FINDINGS: Lines and Tubes: None Lungs: No focal consolidation. Pleura: No effusion. No pneumothorax. Cardiomediastinal contours: Unremarkable Bones: No acute osseous abnormality. IMPRESSION: 1. No acute cardiopulmonary disease. ATED BY: EDUARDO SARMIENTO Jr., DO DICTATED DATE/TIME: 11/25/241945 SIGNED BY: EDUARDO SARMIENTO Jr., SIGNED DATE/TIME: 11/25/241945 CC: Time of 1ST Reevaluation: 20:32 (The case was discussed with the admitting team (HPI, physical exam, labs and diagnostic tests that were available at the time of disposition, ED course, treatment plan) on the phone. They agreed to admit the patient to their service and assume care of this patient from this point forward. --- bety. She requested a CT scan of the abdomen and pelvis.) Reevaluation 1ST: Improved Patient Education/Counseling: Diagnosis, Treatment Family Education/Counseling: No Family Present Comments Sepsis protocol was initiated with conservative fluid resuscitation given the patient's history of CHF of unknown EF currently on Lasix. Patient presented with the above HPI.-nausea vomiting diarrhea and hypotension weakness-----workup was initiated. patient was found with the above mentioned diagnosis. the following medications were ordered: please refer to order lists of meds and tests obtained by myself Dr. Flowers. Patient ED course and VS have been stabilized. Patient has been reassessed in the ED and remained in a stable condition. Pertinent incidental findings were discussed with the patient and/or family. Patient/family voices understanding and is agreeable with plan. Patient has been observed in the ED adequate length of time to insure improvement/stability. Escalation of care considered: Consideration of escalation to observation or admission Patient was found with the acute renal failure and UTI. A consult for Nephrology was placed. Ya catheter was placed. Stool studies results were not available at the time of disposition. Patient was ADMITTED to the medicine team for further evaluation and treatment of their presentation. All the reports of any imaging studies that were ordered by myself were reviewed by myself. Departure 1 Departure Time of Disposition: 19:35 Impression: Primary Impression: Nausea vomiting and diarrhea Additional Impressions: Hypotension Sepsis UTI (urinary tract infection) Acute renal injury Disposition: ADMITTED INPATIENT Admit to: Tele Condition: Guarded Discharged With: Self Critical Care Note Critical Care Time?: Yes (55 min-critical care time only) I personally scribed for HAIR FLOWERS DO ([email or web address]) on 11/25/24 at 19:02. Electronically submitted by Caryl Amaro ([email or web address]). I personally scribed for HAIR FLOWERS DO ([email or web address]) on 11/25/24 at 22:22. Electronically submitted by Caryl Amaro ([email or web address]). HAIR FLOWERS DO Nov 25, 2024 19:02
[2024-11-25 19:21] LABS: Urine Amorphous Crystal FEW /hpf (None Seen); Urine Bacteria MANY /hpf (None Seen); Urine Blood 3+ /uL (Negative); Urine Clarity Turbid (Clear); Urine Color Colorless (Yellow); Urine Hyaline Cast FEW /lpf (0 - 2); Urine Mucus FEW (None Seen); Urine Protein, UAD TRACE (Negative); Urine Specific Gravity 1.013 (1.001-1.035); Urine Squamous Epithelial Cell FEW /hpf (<5); Urine Urobilinogen Normal (Negative); Urine WBC 39 /HPF (0-5); Urine WBC Clumps PRESENT /hpf (None Seen)
[2024-11-25 19:23] LABS: Basophils # (auto) 0.1 10 ^3/uL (0-0.2); Basophils % (auto) 1.6 % (0.0-2.0); Eosinophils # (auto) 0.6 10 ^3/uL (0-0.8); Eosinophils % (auto) 6.8 % (0.0-7.0); Hematocrit 31.1 % (36.0-46.0); Hemoglobin 10.2 g/dL (12.2-16.2); Lymphocytes # (auto) 1.2 10 ^3/uL (0.4-5.4); Lymphocytes % (auto) 13.8 % (10.0-50.0); Mean Corpuscular Hemoglobin 29.2 pg (28.0-32.0); Mean Corpuscular Hgb Conc. 32.6 g/dL (32.0-36.0); Mean Corpuscular Volume 89.6 fL (80.0-100.0); Monocytes # (auto) 0.6 10 ^3/uL (0-1.3); Monocytes % (auto) 7.7 % (0.0-12.0); Neutrophils # (auto) 5.9 10 ^3/uL (1.6-8.6); Neutrophils % (auto) 70.1 % (37.0-80.0); Platelet Count (auto) 280 10^3/uL (140-450); Red Blood Cells 3.47 10^6/uL (4.0-5.20); Red Cell Distribution Width 13.5 % (11.8-14.3); White Blood Cell 8.4 10^3/uL (4.4-10.8)
[2024-11-25 19:43] VITALS: PULSE 56; RESP 14; O2SAT 100
--- NOTE | 2024-11-25 19:48 | DVH ---
CHEST RADIOGRAPH Indication: weak, n/v hyptensive, Technique: Single frontal view of the chest was obtained Comparison: XY CHEST PORTABLE on DOS: 11/17/22, XY CHEST PORTABLE on DOS: 11/15/22, XY CHEST PORTABLE on DOS: 11/14/22 FINDINGS: Lines and Tubes: None Lungs: No focal consolidation. Pleura: No effusion. No pneumothorax. Cardiomediastinal contours: Unremarkable Bones: No acute osseous abnormality. IMPRESSION: 1. No acute cardiopulmonary disease.
[2024-11-25 19:54] LABS: Alanine Aminotransferase 39 U/L (7-40); Albumin 3.5 g/dL (3.2-4.8); Alkaline Phosphatase 96 U/L (46-116); Anion Gap 16 (5-15); Aspartate Aminotransferase 32 U/L (13-40); BUN/Creatinine Ratio 12.4 (10.0-20.0); Calcium 9.3 mg/dL (8.7-10.4); Carbon Dioxide 23 mmol/L (20-31); Chloride 105 mmol/L (98-107); Magnesium 2.1 mg/dL (1.6-2.6); Potassium 4.9 mmol/L (3.5-5.1); Sodium 144 mmol/L (136-145)
[2024-11-25 19:55] LABS: Bilirubin, Total 0.3 mg/dL (0.2-1.0); Blood Urea Nitrogen 77 mg/dL (9-23); Glucose 68 mg/dL (74-106); Total Protein 5.6 g/dL (5.7-8.2)
[2024-11-25 20:05] LABS: Lipase 50 U/L (12-53)
[2024-11-25] MEDS: PIPERACILLIN-TAZOB 3.375GM 100 ML IV ONE (20:17)
[2024-11-25] MEDS: ONDANSETRON HCL 4 MG/2 ML VIAL IV ONE (20:18)
[2024-11-25] MEDS: SODIUM CHLORIDE 0.9% 500 ML IV ONE (21:08)
[2024-11-25] MEDS ORDERED: MORPHINE SULFATE 4 MG/ML SYR/VIAL IV PRN (21:45)
[2024-11-25] MEDS ORDERED: DEXTROSE (50%) 50ML SYRG IV PRN (21:45)
[2024-11-25] MEDS ORDERED: NITROGLYCERIN 0.4 MG SL TAB SL PRN (21:45)
--- NOTE | 2024-11-25 21:49 | DVH ---
Exam: CT CT AB PEL WO CON-NO ORAL OR IV History: n/v/d Comparison Study: CT CT AB PEL WO CON-NO ORAL OR IV on DOS: 11/14/22 TECHNIQUE: Multidetector CT of the abdomen was performed from lung bases to pubic symphysis. Imaging was performed without IV contrast. Axial, coronal and sagittal multiplanar reformats were obtained fr om the axial data set by the technologist. Radiation Dose Information: CT Dose: CTDI volume is 25.6 mGy. Dose-length product is 1459.18 mGy*cm FINDINGS: Evaluation of solid organs is limited due to lack of intravenous contrast use. Findings: Lung Bases: No acute or significant lung base finding. Normal heart size. No pleural or pericardial effusion. Liver: The liver is normal in size. No focal lesions. Gallbladder and Biliary Tree: Gallbladder has been surgically removed. Spleen: Unremarkable Pancreas: The pancreas is grossly normal in appearance. Adrenal Glands: Unremarkable Kidneys: Multiple calcifications in the right kidney.. Prominent calculus in the right renal pelvis m easuring 14.8 x 18.6 mm Bladder: Ya catheter in the bladder. Bowel: The stomach is grossly normal in appearance. Small bowel and colon are normal in caliber and d istribution. The appendix is not visualized; however, no secondary findings of acute appendicitis id entified. Ascites: Absent Lymphadenopathy: No mesenteric, retroperitoneal or periportal lymphadenopathy. Abdominal Wall and Mesentery: 4.2 cm fat containing umbilical hernia. Vasculature: The visualized abdominal aorta is normal in size and caliber. Evaluation of abdominal a nd pelvic vessels is limited due to lack of intravenous contrast. Pelvic Organs: Unremarkable Musculoskeletal: No aggressive focal bony lesions, acute fractures or dislocation. Soft tissues: Unremarkable IMPRESSION: 1. Multiple right renal calculi. Largest measures 14 x 18 mm and is located in the renal pelvis. 2. Gallbladder has been surgically removed. 3. 4.2 cm fat containing umbilical hernia. 4. Ya catheter in the bladder. Radiation optimization: All CT scans at this facility use at least one of these dose optimization heidy hniques: automated exposure control mA and/or kV adjustment per patient size (includes targeted exam s where dose is matched to clinical indication) or iterative reconstruction.
[2024-11-25] MEDS: InsuLIN REG 1unit/0.01ml Soln (100units/ml) SC SCH (22:00)
[2024-11-25] MEDS: SOD CHL 0.45% 1,000 ML IV ONE (22:07)
[2024-11-25] MEDS: ACCU-CHEK COMFORT CURVE STRIP VI SCH (22:16)
--- NOTE | 2024-11-26 00:25 | DVHHP2 ---
Admitting Diagnosis: LINDA History of Present Illness HPI 79 y.o. female with HTN, DM, CHF, CAD was brought to the ER from [facility]. Patient c/o nausea/vomiting/diarrhea on and off for one month and increasing weakness, tremors for the past 2 weeks. Paramedics reported hypotension 70/50 on the initial contact. She was given IVF and Zofran en route. Patient was found to have acute renal failure with Cr 6.7. 2 years ago in was 1.5. Home Meds Active Scripts Rivaroxaban (Xarelto Tablet) 15 Mg Tb, 15 MG PO BID for 20 Days, #40 TAB Prov:ARIEL NERI MD 11/20/22 Amiodarone Hcl (Amiodarone Hcl) 200 Mg Tab, 400 MG PO BID, #14 TAB Prov:ARIEL NERI MD 11/20/22 Doxycycline Hyclate (DOXYCYCLINE HYCLATE) 100 Mg Tab, 1 TAB PO BID, #18 TAB Prov:KAYLI FRANCISCO MD 11/17/22 Furosemide (Lasix) 40 Mg Tab, 40 MG PO DAILY for 60 Days, #60 TAB Prov:KAYLI FRANCISCO MD 11/17/22 Digoxin (Digox) 250 Mcg Tab, 250 MCG PO DAILY for 14 Days, #14 TAB Prov:KAYLI FRANCISCO MD 11/17/22 Potassium Chloride (Klor-Con 8) 8 Meq Tab, 8 MEQ PO DAILY for 30 Days, #30 TAB Prov:KAYLI FRANCISCO MD 11/17/22 Reported Medications Docusate Sodium (Docusate Sodium) 100 Mg Cap, 1 CAP PO QHSP PRN for constipation 11/16/22 Glipizide (Glipizide Er) 10 Mg Tab, 2 TAB PO QAM 11/16/22 Lisinopril & Hydrochlorothiazi (Lisinopril/Hydrochlorothi) 1 Tab Tab, 1 TAB PO DAILY 11/16/22 Trazodone Hcl (Trazodone Hcl) 100 Mg Tab, 2 TAB PO QHSP PRN for ANXIETY 11/16/22 Metoprolol Tartrate (Lopressor) 25 Mg Tb, 1 TAB PO BID 11/14/22 Atorvastatin Calcium (Lipitor) 40 Mg Tab, 1 TAB PO DAILY 11/14/22 Past Medical History Cardiac: CAD, CHF, HTN, [place] Endocrine: NIDDM Patient Family History: FH: cancer G8 MOTHER G8 SISTER FH: leukemia G8 FATHER Review of Systems Constitutional: Malaise, Weakness Gastrointestinal: Nausea, Vomiting, Diarrhea H&P Exam Vital Signs Vital Signs Date Time Temp Pulse Resp B/P (MAP) Pulse Ox O2 Delivery O2 Flow Rate FiO2 11/25/24 22:00 54 12 109/35 (59) 100 11/25/24 19:43 Nasal Cannula* 3 32 11/25/24 19:30 98.0 98.0 General Appeara: Obese Eye Exam: bilateral eye PERRL, bilateral eye EOMI Pulmonary/Respiratory: Decreased breath sounds Cardiovascular/Chest: Bradycardia Abdominal Pain Onset Location: Epigastric, Generalized abdomen Neuro/Mental St: Alert, Oriented Labs/Xrays Labs Test 11/25/24 22:18 11/25/24 22:15 11/25/24 19:08 11/25/24 18:35 Range/Units Troponin I High Sensitivity 21 </=34 ng/L POC Glucose 64 L 70-106 mg/dl White Blood Count 8.4 4.4-10.8 10^3/uL Red Blood Count 3.47 L 4.0-5.20 10^6/uL Hemoglobin 10.2 L 12.2-16.2 g/dL Hematocrit 31.1 L 36.0-46.0 % Mean Corpuscular Volume 89.6 80.0-100.0 fL Mean Corpuscular Hemoglobin 29.2 28.0-32.0 pg Mean Corpuscular Hemoglobin Concent 32.6 32.0-36.0 g/dL Red Cell Distribution Width 13.5 11.8-14.3 % Platelet Count 280 140-450 10^3/uL Mean Platelet Volume 8.9 6.9-10.8 fL Neutrophils (%) (Auto) 70.1 37.0-80.0 % Lymphocytes (%) (Auto) 13.8 10.0-50.0 % Monocytes (%) (Auto) 7.7 0.0-12.0 % Eosinophils (%) (Auto) 6.8 0.0-7.0 % Basophils (%) (Auto) 1.6 0.0-2.0 % Neutrophils # (Auto) 5.9 1.6-8.6 10 ^3/uL Lymphocytes # (Auto) 1.2 0.4-5.4 10 ^3/uL Monocytes # (Auto) 0.6 0-1.3 10 ^3/uL Eosinophils # (Auto) 0.6 0-0.8 10 ^3/uL Basophils # (Auto) 0.1 0-0.2 10 ^3/uL Nucleated Red Blood Cells 0.0 % Sodium Level 144 136-145 mmol/L Potassium Level 4.9 3.5-5.1 mmol/L Chloride Level 105 98-107 mmol/L Carbon Dioxide Level 23 20-31 mmol/L Anion Gap 16 H 5-15 Blood Urea Nitrogen 77 H 9-23 mg/dL Creatinine 6.19 H 0.550-1.02 mg/dL Glomerular Filtration Rate Calc 6 >90 mL/min BUN/Creatinine Ratio 12.4 10.0-20.0 Serum Glucose 68 L 74-106 mg/dL Lactic Acid Level 1.8 0.4-2.0 mmol/L Calcium Level 9.3 8.7-10.4 mg/dL Magnesium Level 2.1 1.6-2.6 mg/dL Total Bilirubin 0.3 0.2-1.0 mg/dL Aspartate Amino Transferase (AST) 32 13-40 U/L Alanine Aminotransferase (ALT) 39 7-40 U/L Alkaline Phosphatase 96 46-116 U/L B-Type Natriuretic Peptide 142.51 0-100 pg/mL Total Protein 5.6 L 5.7-8.2 g/dL Albumin 3.5 3.2-4.8 g/dL Lipase 50 12-53 U/L Urine Color Colorless Yellow Urine Clarity Turbid H Clear Urine pH 5.0 5.0-9.0 Urine Specific [place] 1.013 1.001-1.035 Urine Protein Trace H Negative Urine Ketones Negative Negative Urine Blood 3+ H Negative /uL Urine Nitrite Negative Negative Urine Bilirubin Negative Negative Urine Urobilinogen Normal Negative mg/dL Urine Leukocyte Esterase 3+ Negative /uL Urine RBC 24 0 - 4 /hpf Urine WBC Clumps Present None Seen /hpf Urine Microscopic WBC 39 H 0-5 /HPF Urine Squamous Epithelial Cells Few <5 /hpf Urine Amorphous Crystals Few None Seen /hpf Urine Bacteria Many H None Seen /hpf Urine Hyaline Casts Few 0 - 2 /lpf Urine Mucus Few None Seen Urine Glucose Normal Normal mg/dL Assessment/Plan Problem List: (1) Acute renal injury (2) Nausea vomiting and diarrhea Plan IVF, Abx, nephrology consult Plan discussed with: Patient JOSEE BURGER MD Nov 26, 2024 00:25
--- NOTE | 2024-11-26 01:40 | ECG ---
[facility] Test Date: 2024-11-25 Test Time: 18:29:18 Pat Name: GABRIELA CARRINGTON Department: ED Room: 0231T Gender: F Dock Coordinator: MANASA : 1945 Requested By: HAIR FLOWERS Order Number: [id number] Reading MD: Carlos A Jones Measurements Intervals Victor Rate: 60 P: -77 GA: 198 QRS: 55 QRSD: 117 T: 76 QT: 461 QTc: 461 Interpretive Statements Sinus or ectopic atrial rhythm Nonspecific intraventricular conduction delay Anteroseptal infarct, age indeterminate Electronically Signed On 11-26-2024 21:11:49 PDT by Carlos A Jones Please click the below link to view image of tracing.
[2024-11-26 08:00] VITALS: PULSE 57; RESP 12; O2SAT 100
[2024-11-26 08:57] LABS: Basophils # (auto) 0.1 10 ^3/uL (0-0.2); Basophils % (auto) 1.1 % (0.0-2.0); Eosinophils # (auto) 0.6 10 ^3/uL (0-0.8); Eosinophils % (auto) 7.4 % (0.0-7.0); Hematocrit 30.9 % (36.0-46.0); Lymphocytes # (auto) 1.2 10 ^3/uL (0.4-5.4); Lymphocytes % (auto) 14.4 % (10.0-50.0); Mean Corpuscular Hemoglobin 28.9 pg (28.0-32.0); Mean Corpuscular Hgb Conc. 32.5 g/dL (32.0-36.0); Mean Corpuscular Volume 88.9 fL (80.0-100.0); Monocytes # (auto) 0.9 10 ^3/uL (0-1.3); Monocytes % (auto) 10.8 % (0.0-12.0); Neutrophils # (auto) 5.3 10 ^3/uL (1.6-8.6); Neutrophils % (auto) 66.3 % (37.0-80.0); Platelet Count (auto) 256 10^3/uL (140-450); Red Blood Cells 3.47 10^6/uL (4.0-5.20)
[2024-11-26 09:15] LABS: Alanine Aminotransferase 35 U/L (7-40); Albumin 3.4 g/dL (3.2-4.8); Alkaline Phosphatase 87 U/L (46-116); Anion Gap 12 (5-15); Aspartate Aminotransferase 28 U/L (13-40); BUN/Creatinine Ratio 12.6 (10.0-20.0); Blood Urea Nitrogen 79 mg/dL (9-23); Calcium 9.2 mg/dL (8.7-10.4); Carbon Dioxide 26 mmol/L (20-31); Chloride 106 mmol/L (98-107); Glucose 92 mg/dL (74-106); Potassium 5.4 mmol/L (3.5-5.1); Sodium 144 mmol/L (136-145)
[2024-11-26 09:16] LABS: Total Protein 5.2 g/dL (5.7-8.2)
[2024-11-26 09:32] LABS: Bilirubin, Total 0.2 mg/dL (0.2-1.0)
--- NOTE | 2024-11-26 12:20 | DVHCONRES ---
Date Seen: Nov 26, 2024 Resident Creating Document: COLLETTE ROD RESIDENT Referring Physician Dr. Quintana Reason for Consultation Acute renal failure History of Present Illness This is a 79 y.o. female with past medical history of HTN, type 2 DM, CHF, CAD was brought to the ER from [facility]. Patient states that she has intermittent nausea ,vomiting and diarrhea for last 1 month, not able to drink or eat anything because of the nausea , worsening generalized weakness and tremor that prompted this visit. Paramedics reported hypotension 70/50 on the initial contact. She was given IVF and Zofran en route. Patient was found to have acute renal failure with Cr 6.7. 2 years ago in was 1.5. She denied fever, chest pain, shortness of breath, abdominal pain, hematemesis, hematuria or any change in bowel and bladder habit. The patient was seen and examined on the bedside. He is alert oriented x3 and on 1 L oxygen with saturation 97%. Complaint of dryness in the mouth, generalized weakness tremor and nausea. Family History: FH: cancer G8 MOTHER G8 SISTER FH: leukemia G8 FATHER Allergies: Coded Allergies: NO KNOWN ALLERGIES (Unverified , 11/14/22) Home Meds Reported Medications Metformin Hydrochloride (Metformin Hcl) 1,000 Mg Tab, 1 TAB PO BIDWM for 90 Days, #180 11/26/24 Trazodone Hcl (Trazodone Hcl) 100 Mg Tab, 2 TAB PO QHSP PRN for ANXIETY for 90 Days, #180 11/16/22 Metoprolol Tartrate (Lopressor) 25 Mg Tb, 1 TAB PO BID for 90 Days, #180 11/14/22 Atorvastatin Calcium (Lipitor) 40 Mg Tab, 1 TAB PO DAILY for 90 Days, #90 11/14/22 Current Medications Current Medications Medications (Trade) Dose Ordered Sig/Nahid Route PRN Reason Start Time Stop Time Status Last Admin Nitroglycerin (Ntrostat Sublingual) 0.4 mg Q5MINP PRN SL FOR CHEST PAIN 11/25/24 21:45 Morphine Sulfate 2 mg Q30M PRN IV FOR CHEST PAIN 11/25/24 21:45 Diagnostic Test (Pha) (Accu-Chek Comfort Curve T) 1 strip ACHS 11/25/24 22:00 11/26/24 11:17 Insulin Human Regular (InsuLIN R) ACHS SC 11/25/24 22:00 Dextrose 50 ml UD PRN IV Blood Sugar LESS THAN 60 11/25/24 21:45 Piperacillin Sod/ Tazobactam Sod 100 ml @ 25 mls/hr Q12HR IV 11/26/24 10:00 Ondansetron HCl (Zofran) 4 mg Q6HPRN PRN IV NAUSEA / VOMITING 11/26/24 07:15 Sodium Chloride 1,000 ml @ 100 mls/hr Q10H IV 11/26/24 10:45 Review of Systems Constitutional: No: Fever, Chills, Sweats, Weakness, Malaise, Other Eyes: No: Pain, Vision change, Conjunctivae inflammation, Eyelid inflammation, Other, Redness ENT: No: Ear pain, Ear discharge, Nose pain, Nose discharge, Nose congestion, Mouth pain, Mouth swelling, Throat pain, Throat swelling, Other Respiratory: Shortness of breath, improving No: Cough, Dry,Wheezing, Hemoptysis, Pleuritic Pain, Sputum, Wheezing, Other Cardiovascular: No: Chest Pain, Palpitations, Orthopnea, Paroxysmal Noc. Dyspnea, Edema, Lt Headedness, Other Gastrointestinal: No: Nausea, Vomiting, Abdominal Pain, Diarrhea, Constipation, Melena, Hematochezia, Other Musculoskeletal: No: other, neck pain, shoulder pain, arm pain, back pain, hand pain, leg pain, foot pain Neurological:; No: Weakness, Numbness, Incoordination, Change in speech, Confusion, Seizures Vital Signs Vital Signs Date Time Temp Pulse Resp B/P (MAP) Pulse Ox O2 Delivery O2 Flow Rate FiO2 11/26/24 08:00 57 12 100 Nasal Cannula* 3 32 11/26/24 08:00 97.8 120/58 (78) 97.8 Physical Exam Physical examination: General Appearance: Alert, Oriented X3, Cooperative, mild distress HEENT: Atraumatic, PERRLA, EOMI, Mucous membrane dry Respiratory: Clear to auscultation, Normal air movement Cardiovascular: Regular rate, Normal S1, Normal S2, No murmurs, no chest wall tenderness Abdominal: Normal bowel sounds, Soft, No tenderness, No hepatospenomegaly, No masses Extremities: bilateral edema +, No clubbing, No cyanosis, Normal pulses, No tenderness/swelling Skin: No rashes, No breakdown, No significant lesion Neuro: Bed bound, Normal speech, Strength at 5/5 X4 ext, Normal tone, Sensation intact, grossly intact cranial nerves. Psych/Mental Status: Mental status NL, Mood NL Labs/Diagnostic Data Labs Test 11/26/24 11:15 11/26/24 08:33 11/26/24 06:32 11/25/24 22:18 Range/Units POC Glucose 78 70-106 mg/dl White Blood Count 8.0 4.4-10.8 10^3/uL Red Blood Count 3.47 L 4.0-5.20 10^6/uL Hemoglobin 10.0 L 12.2-16.2 g/dL Hematocrit 30.9 L 36.0-46.0 % Mean Corpuscular Volume 88.9 80.0-100.0 fL Mean Corpuscular Hemoglobin 28.9 28.0-32.0 pg Mean Corpuscular Hemoglobin Concent 32.5 32.0-36.0 g/dL Red Cell Distribution Width 14.0 11.8-14.3 % Platelet Count 256 140-450 10^3/uL Mean Platelet Volume 8.8 6.9-10.8 fL Neutrophils (%) (Auto) 66.3 37.0-80.0 % Lymphocytes (%) (Auto) 14.4 10.0-50.0 % Monocytes (%) (Auto) 10.8 0.0-12.0 % Eosinophils (%) (Auto) 7.4 H 0.0-7.0 % Basophils (%) (Auto) 1.1 0.0-2.0 % Neutrophils # (Auto) 5.3 1.6-8.6 10 ^3/uL Lymphocytes # (Auto) 1.2 0.4-5.4 10 ^3/uL Monocytes # (Auto) 0.9 0-1.3 10 ^3/uL Eosinophils # (Auto) 0.6 0-0.8 10 ^3/uL Basophils # (Auto) 0.1 0-0.2 10 ^3/uL Nucleated Red Blood Cells 0.0 % Sodium Level 144 136-145 mmol/L Potassium Level 5.4 H 3.5-5.1 mmol/L Chloride Level 106 98-107 mmol/L Carbon Dioxide Level 26 20-31 mmol/L Anion Gap 12 5-15 Blood Urea Nitrogen 79 H 9-23 mg/dL Creatinine 6.29 H 0.550-1.02 mg/dL Glomerular Filtration Rate Calc 6 >90 mL/min BUN/Creatinine Ratio 12.6 10.0-20.0 Serum Glucose 92 74-106 mg/dL Calcium Level 9.2 8.7-10.4 mg/dL Total Bilirubin 0.2 0.2-1.0 mg/dL Aspartate Amino Transferase (AST) 28 13-40 U/L Alanine Aminotransferase (ALT) 35 7-40 U/L Alkaline Phosphatase 87 46-116 U/L Total Protein 5.2 L 5.7-8.2 g/dL Albumin 3.4 3.2-4.8 g/dL Stool Occult Blood Negative Negative Stool Occult Blood Sample #3 Negative Stool for White Cells Few Troponin I High Sensitivity 21 </=34 ng/L Test 11/25/24 19:08 11/25/24 18:35 Range/Units Lactic Acid Level 1.8 0.4-2.0 mmol/L Magnesium Level 2.1 1.6-2.6 mg/dL B-Type Natriuretic Peptide 142.51 0-100 pg/mL Lipase 50 12-53 U/L Urine Color Colorless Yellow Urine Clarity Turbid H Clear Urine pH 5.0 5.0-9.0 Urine Specific [place] 1.013 1.001-1.035 Urine Protein Trace H Negative Urine Ketones Negative Negative Urine Blood 3+ H Negative /uL Urine Nitrite Negative Negative Urine Bilirubin Negative Negative Urine Urobilinogen Normal Negative mg/dL Urine Leukocyte Esterase 3+ Negative /uL Urine RBC 24 0 - 4 /hpf Urine WBC Clumps Present None Seen /hpf Urine Microscopic WBC 39 H 0-5 /HPF Urine Squamous Epithelial Cells Few <5 /hpf Urine Amorphous Crystals Few None Seen /hpf Urine Bacteria Many H None Seen /hpf Urine Hyaline Casts Few 0 - 2 /lpf Urine Mucus Few None Seen Urine Glucose Normal Normal mg/dL Assessment Assessment: # LINDA likely secondary to hemodynamically mediated/VMN # LIDNA likely secondary to dehydration # Hyperkalemia likely due to LINDA # Dehydration likely due to prolonged intractable nausea and vomiting # Acute complicated Cystitis # Right renal calculi without hydronephrosis # Paroxysmal atrial fibrillation with secondary hypercoagulable state # Chronic systolic heart failure, EF 30% Plan/ Recommendations: - Cardiac diet - LINDA likely prerenal, urine sodium is low - IV normal saline at 100 mL/hour - Ultrasound of the kidney ruled out hydronephrosis - Ordered echo to monitor cardiac function - Continue IV antibiotics for UTI as per primary - Avoid nephrotoxic medication - Strict I&O - We will follow this patient Plan discussed with Dr. Marquez Plan discussed with: Patient, Other (RN) ADDENDUM ADDENDUM Elderly white female with past medical history of congestive heart failure, morbid obesity, hypertension and diabetes presents to the hospital complaining of severe weakness. Nephrology was consulted due to acute kidney injury. Renal function approximately two years ago showed moderate kidney disease with a GFR in the proximate mid 40s to 50s. Review and evaluation at bedside show patient has had significant volume depletion in the setting of excessive diarrhea and was diagnosed with urinary tract infection. Plan currently to continue IV fluid hydration, obtain new echocardiogram due to previous history of diminished systolic heart function. No emergent indication at this time for hemodialysis Patient was seen and evaluated with resident at the bedside in the ER COLLETTE ROD Nov 26, 2024 12:19 TOM MARQUEZ MD Nov 26, 2024 21:29
[2024-11-26] MEDS ORDERED: InsuLIN REG 1unit/0.01ml Soln (100units/ml) IV ONE (13:00)
[2024-11-26] MEDS: ALBUTEROL SULF 2.5 MG/0.5ML(0.5%) NEB SOLN ONE (13:08)
[2024-11-26] MEDS: ALBUTEROL SULF 2.5 MG/0.5ML(0.5%) NEB SOLN NEB ONE (13:12)
--- NOTE | 2024-11-26 13:31 | DVH ---
Renal ultrasound HISTORY: kidney stone TECHNIQUE: 2 D ultrasound was performed with transaxial and longitudinal images. FINDINGS: Right kidney measures 11.2 cm and left kidney measures 9.8 cm. Renal cortical echogenicity is increased. No renal masses, stones or hydronephrosis. Urinary bladder could not be examined due to the presence of mejia catheter IMPRESSION: 1. No renal stones or hydronephrosis.
[2024-11-26] MEDS: PIPERACILLIN-TAZOB 3.375GM 100 ML IV SCH (14:45)
[2024-11-26] MEDS: SODIUM CHLORIDE 0.9% 1,000 ML IV SCH (14:45)
[2024-11-26] MEDS: DEXTROSE (50%) 50ML SYRG IV ONE (14:49)
[2024-11-26] MEDS: SODIUM BICARB 8.4% 50Meq/50ml SYR INJ IV ONE (14:49)
[2024-11-26] MEDS: SODIUM ZIRCONIUM CYCL 10 GM PAK PO ONE (16:00)
[2024-11-26 16:28] VITALS: PULSE 61; RESP 18; O2SAT 95
[2024-11-26 17:00] VITALS: BP 148/120; PULSE 64; RESP 19; TEMP 97.4; O2SAT 96
[2024-11-26 17:40] LABS: Creatinine, Urine 106.87 mg/dL (30.0-125.0); Urine Protein/Creatinine Ratio 0.74
[2024-11-26 19:43] LABS: Chloride 105 mmol/L (98-107); Potassium 4.3 mmol/L (3.5-5.1); Sodium 144 mmol/L (136-145)
[2024-11-26 19:44] LABS: Anion Gap 16 (5-15); Calcium 8.8 mg/dL (8.7-10.4); Carbon Dioxide 23 mmol/L (20-31)
[2024-11-26 19:49] LABS: BUN/Creatinine Ratio 13.3 (10.0-20.0)
[2024-11-26 19:52] LABS: Glucose 140 mg/dL (74-106)
[2024-11-26 19:53] LABS: Blood Urea Nitrogen 81 mg/dL (9-23)
[2024-11-26 20:00] VITALS: PULSE 62; PULSE 67; RESP 20; O2SAT 95
[2024-11-26 21:00] VITALS: BP 125/79; PULSE 67; RESP 20; TEMP 97.7; O2SAT 95
[2024-11-27] VITALS (9 sets, daily range): BP systolic 102–132; BP diastolic 25–69; PULSE 57–84; RESP 16–20; TEMP 97.8–98.4; O2SAT 92–96
[2024-11-27 05:38] LABS: Basophils # (auto) 0.1 10 ^3/uL (0-0.2); Basophils % (auto) 1.1 % (0.0-2.0); Eosinophils # (auto) 0.6 10 ^3/uL (0-0.8); Eosinophils % (auto) 7.2 % (0.0-7.0); Hematocrit 26.6 % (36.0-46.0); Hemoglobin 8.9 g/dL (12.2-16.2); Lymphocytes # (auto) 0.8 10 ^3/uL (0.4-5.4); Lymphocytes % (auto) 9.9 % (10.0-50.0); Mean Corpuscular Hemoglobin 29.5 pg (28.0-32.0); Mean Corpuscular Hgb Conc. 33.4 g/dL (32.0-36.0); Mean Corpuscular Volume 88.3 fL (80.0-100.0); Monocytes # (auto) 1.1 10 ^3/uL (0-1.3); Monocytes % (auto) 13.1 % (0.0-12.0); Neutrophils # (auto) 5.6 10 ^3/uL (1.6-8.6); Neutrophils % (auto) 68.7 % (37.0-80.0); Platelet Count (auto) 236 10^3/uL (140-450); Red Blood Cells 3.01 10^6/uL (4.0-5.20); White Blood Cell 8.2 10^3/uL (4.4-10.8)
[2024-11-27 05:46] LABS: Chloride 105 mmol/L (98-107); Potassium 4.5 mmol/L (3.5-5.1); Sodium 141 mmol/L (136-145)
[2024-11-27 05:47] LABS: Anion Gap 11 (5-15); Carbon Dioxide 25 mmol/L (20-31)
[2024-11-27 05:53] LABS: BUN/Creatinine Ratio 11.5 (10.0-20.0)
[2024-11-27 05:54] LABS: Blood Urea Nitrogen 69 mg/dL (9-23); Calcium 8.1 mg/dL (8.7-10.4); Glucose 109 mg/dL (74-106)
--- NOTE | 2024-11-27 10:37 | DVHPN2 ---
Progress Note - Dictate Date Seen: Nov 27, 2024 Medical Necessity Reason Pt with a Central, PICC or Fol: Yes The following are medically ne: Ya Catheter Subjective Patient eating breakfast comfortably. Complains of tremors that have been present for the past 4 weeks. She denies seeing a neurologist for this condition. vital signs Vital Sign Date Time Temp Pulse Resp B/P (MAP) Pulse Ox O2 Delivery O2 Flow Rate FiO2 11/27/24 08:46 98.4 60 18 107/35 (59) 95 98.4 11/26/24 20:00 Room Air* 0 21 Total Intake and Output 11/26/24 11/26/24 11/27/24 15:00 23:00 07:00 Intake Total 300 ml 200 ml 200 ml Output Total 350 ml Balance 300 ml 200 ml -150 ml medications Current Medications Medications Dose Ordered Sig/Nahid Route Start Time Stop Time Status Last Admin Dose Admin Nitroglycerin 0.4 mg Q5MINP PRN SL 11/25/24 21:45 Morphine Sulfate 2 mg Q30M PRN IV 11/25/24 21:45 Diagnostic Test (Pha) 1 strip ACHS 11/25/24 22:00 11/27/24 06:36 1 STRIP Insulin Human Regular ACHS SC 11/25/24 22:00 Dextrose 50 ml UD PRN IV 11/25/24 21:45 Piperacillin Sod/ Tazobactam Sod 100 ml @ 25 mls/hr Q12HR IV 11/26/24 10:00 11/27/24 09:43 25 MLS/HR Ondansetron HCl 4 mg Q6HPRN PRN IV 11/26/24 07:15 Sodium Chloride 1,000 ml @ 100 mls/hr Q10H IV 11/26/24 10:45 11/26/24 23:05 100 MLS/HR objective General appearance: No acute distress Respiratory: Lungs clear to auscultation. No wheezing, crackles Cardiovascular: Regular rate and rhythm, no murmurs. No edema Abdomen: Soft, nondistended, nontender, bowel sounds present MSK: Normal range of motion. Neuro: Alert. Bilateral upper extremity tremors noted. Psych: Appropriate mood and affect. laboratory and microbiology Laboratory Tests 11/27/24 05:14 Test 11/27/24 05:14 Range/Units Serum Glucose 109 H 74-106 mg/dL Assessment/Plan 1. LINDA, due to VMN from nausea and vomiting 2. Upper Extremity Tremors 3. Non-obstructive nephrolithiasis 4. Morbid Obesity Plan: - Nephrology consulted for LINDA - IVF at 50 mL/h. Caution in the setting of fluid overload given patient's history of CHF - Repeat echocardiogram pending - Strict I's and O's. Continue Ya catheter -Continue Zosyn for UTI - Neurology consulted for tremors - MRI brain pending - Full code Plan discussed with: Patient SACHILION Calhoun DO Nov 27, 2024 10:37
--- NOTE | 2024-11-27 11:35 | DVHPN2 ---
Progress Note Date Seen: Nov 27, 2024 Resident Creating Document: COLLETTE ROD RESIDENT Medical Necessity Reason Pt with a Central, PICC or Fol: Yes The following are medically ne: Ya Catheter Subjective Review of Systems This is a 79 y.o. female with past medical history of HTN, type 2 DM, CHF, CAD was brought to the ER from [facility]. Patient states that she has intermittent nausea ,vomiting and diarrhea for last 1 month, not able to drink or eat anything because of the nausea , worsening generalized weakness and tremor that prompted this visit. Paramedics reported hypotension 70/50 on the initial contact. She was given IVF and Zofran en route. Patient was found to have acute renal failure with Cr 6.7. 2 years ago in was 1.5. She denied fever, chest pain, shortness of breath, abdominal pain, hematemesis, hematuria or any change in bowel and bladder habit. The patient was seen and examined on the bedside. He is alert oriented x3 and on 1 L oxygen with saturation 97%. Complaint of dryness in the mouth, generalized weakness tremor and nausea. Objective vital signs Vital Sign Date Time Temp Pulse Resp B/P (MAP) Pulse Ox O2 Delivery O2 Flow Rate FiO2 11/27/24 08:46 98.4 60 18 107/35 (59) 95 98.4 11/27/24 08:00 Room Air* 0 21 Total Intake and Output 11/26/24 11/26/24 11/27/24 15:00 23:00 07:00 Intake Total 300 ml 200 ml 200 ml Output Total 350 ml Balance 300 ml 200 ml -150 ml medications Current Medications Medications Dose Ordered Sig/Nahid Route Start Time Stop Time Status Last Admin Dose Admin Nitroglycerin 0.4 mg Q5MINP PRN SL 11/25/24 21:45 Morphine Sulfate 2 mg Q30M PRN IV 11/25/24 21:45 Diagnostic Test (Pha) 1 strip ACHS 11/25/24 22:00 11/27/24 11:29 1 STRIP Insulin Human Regular ACHS SC 11/25/24 22:00 Dextrose 50 ml UD PRN IV 11/25/24 21:45 Piperacillin Sod/ Tazobactam Sod 100 ml @ 25 mls/hr Q12HR IV 11/26/24 10:00 11/27/24 09:43 25 MLS/HR Ondansetron HCl 4 mg Q6HPRN PRN IV 11/26/24 07:15 Sodium Chloride 1,000 ml @ 60 mls/hr [id number] IV 11/27/24 11:00 Examination Physical examination: General Appearance: Alert, Oriented X3, Cooperative, mild distress HEENT: Atraumatic, PERRLA, EOMI, Mucous membrane dry Respiratory: Clear to auscultation, Normal air movement Cardiovascular: Regular rate, Normal S1, Normal S2, No murmurs, no chest wall tenderness Abdominal: Normal bowel sounds, Soft, No tenderness, No hepatospenomegaly, No masses Extremities: bilateral edema +, No clubbing, No cyanosis, Normal pulses, No tenderness/swelling Skin: No rashes, No breakdown, No significant lesion Neuro: Bed bound, Normal speech, Strength at 5/5 X4 ext, Normal tone, Sensation intact, grossly intact cranial nerves. Psych/Mental Status: Mental status NL, Mood NL laboratory and microbiology Laboratory Tests 11/27/24 05:14 Test 11/27/24 05:14 Range/Units Serum Glucose 109 H 74-106 mg/dL Microbiology Date/Time Source Procedure Growth Status 11/26/24 17:00 Voided Urine Urine Culture - Preliminary Resulted 11/26/24 06:32 Stool Stool Culture - Preliminary Resulted 11/26/24 06:32 Stool Shiga Toxin I & II - Final Resulted 11/26/24 06:32 Stool Clostridium difficile Toxin Assay - Final Resulted 11/25/24 19:08 Blood Blood Culture - Preliminary NO GROWTH AFTER 24 HOURS OF INCUBATION. Resulted Labs and/or images reviewed: Labs reviewed by me, Image(s) reviewed by me Problem List/Assessment/Plan Problem List/Assessment/Plan Assessment: # LINDA likely secondary to hemodynamically mediated/VMN # LINDA likely secondary to dehydration # Hyperkalemia likely due to LINDA # Dehydration likely due to prolonged intractable nausea and vomiting # Acute complicated Cystitis # Right renal calculi without hydronephrosis # Paroxysmal atrial fibrillation with secondary hypercoagulable state # Chronic systolic heart failure with improved EF 50% Plan/ Recommendations: - Slight improved kidney function. - Cardiac diet - LINDA likely prerenal, urine sodium is low - IV normal saline at 100 mL/hour - IV Lasix 60 mg once. - Ultrasound of the kidney ruled out hydronephrosis - Recent echo demonstrated EF 50% - Continue IV antibiotics for UTI as per primary - Avoid nephrotoxic medication - Strict I&O - We will follow this patient Plan discussed with Dr. Marquez. Plan discussed with: Patient (RN), Other My Orders My Orders Orders - COLLETTE ROD Procedure Category Date Status Time Urine Bacterial JUSTINE 11/26/24 In Process Culture 11:37 Kidney US 11/26/24 Resulted 11:39 COLLETTE ROD RESIDENT Nov 27, 2024 11:35
--- NOTE | 2024-11-27 12:23 | DVHSR ---
APPROVED REPORT EXAM: Two-dimensional and M-mode echocardiogram with Doppler and color Doppler. Blood Pressure: 114/44 mmHg INDICATION CHF RISK FACTORS Obesity: Height: 5'9", Weight: 279 DIMENSIONS LVDd5.4 (3.8-5.7cm)LA (2D)3.7 (1.9-4.0cm)Aortic Root3.5 (2.0-3.7cm) LVDs3.7 (2.5-4.0cm)LA (MM) (1.9-4.0cm)Aortic Cusp Exc1.4 (1.5-2.0cm) EF (%) 55.0 (55-70%)Rt. Atrium3.8 (1.9-4.0cm)Asc. Aorta cm IVSd1.1 (0.7-1.1cm)RV (D) (1.8-2.4cm) PWd1.1 (0.7-1.1cm) Mitral Valve MitralMitral Stenosis E wave1.05m/sMV Mean GR.mmHg A wave0.84m/sMV Peak GR.mmHg E/A ratio1.32D MVAcm2 DECEL [id number] 1/2 Timems Aortic Valve Aortic ValveAortic Stenosis V11.16m/Juan Manuel Mean GR.10mmHg V22.26m/Juan Manuel Peak GR.20mmHg LVOT Diameter1.9 (1.8-2.4cm)Doppler AVA1.45cm2 AI P 1/2 [id number] Pulmonic Valve V21.47m/s Tricuspid Valve TR Velocity3.08m/s [id number] Other Information Quality : LimitedRhythm : Technically limited study due to body habitus, patient lying flat unable to turn. Conclusion lvef 50% anteroapex is hypokinetic normal rv function left atrium enlarged no severe valve abnormalities noted
[2024-11-27] MEDS: SODIUM CHLORIDE 0.9% 1,000 ML IV SCH (12:26)
--- NOTE | 2024-11-27 14:47 | DVH ---
PROCEDURE: MRI BRAIN HEAD WO CONTRAST Indication: Tremors COMPARISON: None TECHNIQUE: Multiplanar multisequence images of the brain are obtained. FINDINGS: There is no abnormal diffusion restriction. Moderate to advanced periventricular and subcortical whit e matter T2, FLAIR hyperintense changes. There is no intracranial hemorrhage. No extra-axial fluid co llection, mass effect or midline shift. The ventricles are midline and normal in size. The cisterns a re patent. Normal intracranial flow voids are preserved. No abnormal susceptibility signal. Bilateral mastoid effusions, [id number]. Mucosal thickening ethmoids . Postsurgical cabrera ges bilateral orbits.. IMPRESSION: 1. No acute cerebrovascular ischemia. 2. Moderate to advanced chronic microvascular ischemic changes. 3. Bilateral mastoid effusions
[2024-11-27] MEDS: FUROSEMIDE 100 MG/10ML VIAL IV ONE (16:32)
--- NOTE | 2024-11-27 20:42 | DVHINCON2 ---
Date of service: Nov 27, [address] Dao Reason for Consultation Tremors past four weeks History of Present Illness Ms. Edward is a 79 years old right-handed female with a history of history of hypertension, diabetes, dyslipidemia, coronary artery disease, heart attack, congestive heart failure, kidney stone, depression, obesity, she was admitted on 11/25/2024 with a chief company of nausea, vomiting, and diarrhea for one month. At this time, she is awake, oriented to person, place, she knows year, and month but is not a good historian For 3-4 weeks of time, the patient has tremors in the arms, leg and body with no associated mental status changes, she denies similar problems previously. The patient also has nausea, vomiting, diarrhea for about one month, worsens in the lasts a few days She reports for a few years, the patient has a discomfort in the legs in the evening, with the urge to move, and her legs more on the himself. He was said to have restless syndrome, she was on medication previously, which did not always help Urinalysis, 11/25/2024: WBC: 39, urine leukocyte esterase: 3+ WBC/HB/PLT/MCV, 11/27/2024: 8.2/8.9/236/88.3 BUN/CR, 11/27/2024: 69/6.02 Liver function tests, 11/26/2024: Unremarkable MRI head, 11/27/2024: 1. No acute cerebrovascular ischemia. 2. Moderate to advanced chronic microvascular ischemic changes. 3. Bilateral mastoid effusions Past Medical History Hypertension, diabetes, dyslipidemia, coronary artery disease, congestive heart failure, heart attack, kidney stone, depression Past Surgical History Cholecystectomy, hernia repair Family History: FH: cancer G8 MOTHER G8 SISTER FH: leukemia G8 FATHER Family History Cancer Social History She has a Non-Smoker. No history of alcohol or drug abuse Allergies: Coded Allergies: NO KNOWN ALLERGIES (Unverified , 11/14/22) Home Meds Reported Medications Metformin Hydrochloride (Metformin Hcl) 1,000 Mg Tab, 1 TAB PO BIDWM for 90 D ays, #180 11/26/24 Trazodone Hcl (Trazodone Hcl) 100 Mg Tab, 2 TAB PO QHSP PRN for ANXIETY for 90 Days, #180 11/16/22 Metoprolol Tartrate (Lopressor) 25 Mg Tb, 1 TAB PO BID for 90 Days, #180 11/14/22 Atorvastatin Calcium (Lipitor) 40 Mg Tab, 1 TAB PO DAILY for 90 Days, #90 11/14/22 Current Medications Current Medications Medications (Trade) Dose Ordered Sig/Nahid Route PRN Reason Start Time Stop Time Status Last Admin Sodium Chloride 1,000 ml @ 60 mls/hr [id number] IV 11/27/24 11:00 11/27/24 12:26 Review of Systems As above, the other systems are negative Vital Signs Vital Signs Date Time Temp Pulse Resp B/P (MAP) Pulse Ox O2 Delivery O2 Flow Rate FiO2 11/27/24 16:47 97.8 84 16 117/69 (85) 96 97.8 11/27/24 08:00 Room Air* 0 21 Physical Exam GENERAL EXAM: General: the patient is well developed and nourished. No acute distress. HEENT: Normocephalic, neck is supple, no carotid bruits. No mass. The throat is Mallampati grade RESPIRATORY: Normal respiratory effort with symmetrical lung expansion. Lungs clear to auscultation. CARDIOVASCULAR: Regular rate and rhythm with no murmurs. S1, S2. ABDOMEN: Soft, nontender, normal bowel sound NEUROLOGICAL: MENTAL STATUS: Awake and alert. Oriented to person, place, she knows year and the month, poor historian SPEECH, LANGUAGE, HIGHER CORTICAL FUNCTION: no aphasia or dysathria. CRANIAL NERVES: #2: Intact visual rogers to confrontation. The optic discs were sharp. #3,4,6: Pupils are equal, round and reactive. EOMs full and conjugate. #5: Facial sensation intact in all three divisions bilaterally. Mandibular strength intact. #7: Facial muscles symmetrical and strength intact. #8: Hearing grossly normal to voice. #9,10: Uvula and soft palate rise in the midline. Swallow and voice are normal. #11: Trapezius and sternomastoid strength intact bilaterally. #12: Tongue midline. No fasciculations or atrophy. SENSATION: Sensation to touch and pinprick is fine MOTOR: Normal tone in the upper and lower extremity. Normal muscle bulk. No fasciculations. Mild tremors in the arms and legs, worse on posturing. Muscle strength of the major groups in the upper extremities is 5/5. Muscle strength of the major groups in the lower extremities is 5/5. REFLEXES: Deep tendon reflexes are symmetrical. No pathological reflexes. CEREBELLAR/COORDINATION: Finger to nose is normal bilaterally. GAIT/STATION: deferred. Labs/Diagnostic Data Labs Test 11/27/24 11:18 11/27/24 05:14 11/26/24 17:00 11/26/24 08:33 Range/Units POC Glucose 115 H 70-106 mg/dl White Blood Count 8.2 4.4-10.8 10^3/uL Red Blood Count 3.01 L 4.0-5.20 10^6/uL Hemoglobin 8.9 L 12.2-16.2 g/dL Hematocrit 26.6 #L 36.0-46.0 % Mean Corpuscular Volume 88.3 80.0-100.0 fL Mean Corpuscular Hemoglobin 29.5 28.0-32.0 pg Mean Corpuscular Hemoglobin Concent 33.4 32.0-36.0 g/dL Red Cell Distribution Width 14.0 11.8-14.3 % Platelet Count 236 140-450 10^3/uL Mean Platelet Volume 8.8 6.9-10.8 fL Neutrophils (%) (Auto) 68.7 37.0-80.0 % Lymphocytes (%) (Auto) 9.9 L 10.0-50.0 % Monocytes (%) (Auto) 13.1 H 0.0-12.0 % Eosinophils (%) (Auto) 7.2 H 0.0-7.0 % Basophils (%) (Auto) 1.1 0.0-2.0 % Neutrophils # (Auto) 5.6 1.6-8.6 10 ^3/uL Lymphocytes # (Auto) 0.8 0.4-5.4 10 ^3/uL Monocytes # (Auto) 1.1 0-1.3 10 ^3/uL Eosinophils # (Auto) 0.6 0-0.8 10 ^3/uL Basophils # (Auto) 0.1 0-0.2 10 ^3/uL Nucleated Red Blood Cells 0.0 % Sodium Level 141 136-145 mmol/L Potassium Level 4.5 3.5-5.1 mmol/L Chloride Level 105 98-107 mmol/L Carbon Dioxide Level 25 20-31 mmol/L Anion Gap 11 5-15 Blood Urea Nitrogen 69 #H 9-23 mg/dL Creatinine 6.02 H 0.550-1.02 mg/dL Glomerular Filtration Rate Calc 7 >90 mL/min BUN/Creatinine Ratio 11.5 10.0-20.0 Serum Glucose 109 H 74-106 mg/dL Calcium Level 8.1 L 8.7-10.4 mg/dL Urine Creatinine 106.87 30.0-125.0 mg/dL Urine Protein/Creatinine Ratio 0.74 Urine Sodium 25 L 40-220 mmol/L Urine Total Protein 79.0 H 1-14 mg/dL Total Bilirubin 0.2 0.2-1.0 mg/dL Aspartate Amino Transferase (AST) 28 13-40 U/L Alanine Aminotransferase (ALT) 35 7-40 U/L Alkaline Phosphatase 87 46-116 U/L Total Protein 5.2 L 5.7-8.2 g/dL Albumin 3.4 3.2-4.8 g/dL Test 11/26/24 06:32 11/25/24 22:18 11/25/24 19:08 11/25/24 18:35 Range/Units Stool Occult Blood Negative Negative Stool Occult Blood Sample #3 Negative Stool for White Cells Few Troponin I High Sensitivity 21 </=34 ng/L Lactic Acid Level 1.8 0.4-2.0 mmol/L Magnesium Level 2.1 1.6-2.6 mg/dL B-Type Natriuretic Peptide 142.51 0-100 pg/mL Lipase 50 12-53 U/L Urine Color Colorless Yellow Urine Clarity Turbid H Clear Urine pH 5.0 5.0-9.0 Urine Specific [place] 1.013 1.001-1.035 Urine Protein Trace H Negative Urine Ketones Negative Negative Urine Blood 3+ H Negative /uL Urine Nitrite Negative Negative Urine Bilirubin Negative Negative Urine Urobilinogen Normal Negative mg/dL Urine Leukocyte Esterase 3+ Negative /uL Urine RBC 24 0 - 4 /hpf Urine WBC Clumps Present None Seen /hpf Urine Microscopic WBC 39 H 0-5 /HPF Urine Squamous Epithelial Cells Few <5 /hpf Urine Amorphous Crystals Few None Seen /hpf Urine Bacteria Many H None Seen /hpf Urine Hyaline Casts Few 0 - 2 /lpf Urine Mucus Few None Seen Urine Glucose Normal Normal mg/dL Microbiology Date/Time Source Procedure Growth Status 11/26/24 17:00 Voided Urine Urine Culture - Preliminary Resulted 11/26/24 06:32 Stool Stool Culture - Preliminary Resulted 11/26/24 06:32 Stool Shiga Toxin I & II - Final Resulted 11/26/24 06:32 Stool Clostridium difficile Toxin Assay - Final Resulted 11/25/24 19:08 Blood Blood Culture - Preliminary NO GROWTH AFTER 48 HOURS OF INCUBATION. Resulted Assessment Tremors, likely myoclonus triggered by dehydration, kidney failure Metabolic encephalopathy Restless leg syndrome Iron deficiency Plan/Recommendation Monitoring Supportive treatment Telemetry EEG Iron profile Ferritin A trial of Mirapex 0.25 mg in the evening Nephrology consultation Progress: Poor This medical document was created using an electronic medical record system with [employer] computerized dictation system. Although this document has been carefully reviewed, there may still be some phonetic and typographical errors. These areas are purely typographical due to imperfections of the software programs, and do not reflect any compromise in the patient's medical care. Plan discussed with: Other ANGEL LUIS WYATT MD Nov 27, 2024 20:42
[2024-11-27 22:01] LABS: % Iron Saturation 37.9 % (15-50)
[2024-11-27] MEDS: PRAMIPEXOLE DIHYDROCHLORIDE MO 0.25 MG TAB PO ONE (23:20)
[2024-11-28] VITALS (8 sets, daily range): BP systolic 105–136; BP diastolic 39–77; PULSE 58–67; RESP 16–20; TEMP 97.9–98.8; O2SAT 93–97
[2024-11-28 09:20] LABS: Anion Gap 10 (5-15); Calcium 8.7 mg/dL (8.7-10.4); Carbon Dioxide 25 mmol/L (20-31); Potassium 4.3 mmol/L (3.5-5.1); Sodium 143 mmol/L (136-145)
[2024-11-28 09:25] LABS: Chloride 108 mmol/L (98-107)
[2024-11-28 09:26] LABS: BUN/Creatinine Ratio 10.2 (10.0-20.0); Glucose 92 mg/dL (74-106)
[2024-11-28 09:27] LABS: Blood Urea Nitrogen 60 mg/dL (9-23)
--- NOTE | 2024-11-28 10:27 | DVHPN2 ---
Progress Note Date Seen: Nov 28, 2024 Resident Creating Document: COLLETTE ROD RESIDENT Medical Necessity Reason Pt with a Central, PICC or Fol: Yes The following are medically ne: Ya Catheter Subjective Review of Systems This is a 79 y.o. female with past medical history of HTN, type 2 DM, CHF, CAD was brought to the ER from [facility]. Patient states that she has intermittent nausea ,vomiting and diarrhea for last 1 month, not able to drink or eat anything because of the nausea , worsening generalized weakness and tremor that prompted this visit. Paramedics reported hypotension 70/50 on the initial contact. She was given IVF and Zofran en route. Patient was found to have acute renal failure with Cr 6.7. 2 years ago in was 1.5. She denied fever, chest pain, shortness of breath, abdominal pain, hematemesis, hematuria or any change in bowel and bladder habit. The patient was seen and examined on the bedside. He is alert oriented x3 and on 1 L oxygen with saturation 97%. Complaint of dryness in the mouth, generalized weakness, and tremor . Objective vital signs Vital Sign Date Time Temp Pulse Resp B/P (MAP) Pulse Ox O2 Delivery O2 Flow Rate FiO2 11/28/24 07:37 98.2 65 18 136/71 (92) 95 98.2 11/27/24 20:00 Room Air* 0 21 Total Intake and Output 11/27/24 11/27/24 11/28/24 15:00 23:00 07:00 Intake Total 0 ml 1860 ml 800 ml Output Total 500 ml 450 ml Balance 0 ml 1360 ml 350 ml medications Current Medications Medications Dose Ordered Sig/Nahid Route Start Time Stop Time Status Last Admin Dose Admin Nitroglycerin 0.4 mg Q5MINP PRN SL 11/25/24 21:45 Morphine Sulfate 2 mg Q30M PRN IV 11/25/24 21:45 Diagnostic Test (Pha) 1 strip ACHS 11/25/24 22:00 11/28/24 06:16 1 STRIP Insulin Human Regular ACHS SC 11/25/24 22:00 Dextrose 50 ml UD PRN IV 11/25/24 21:45 Piperacillin Sod/ Tazobactam Sod 100 ml @ 25 mls/hr Q12HR IV 11/26/24 10:00 11/27/24 23:19 25 MLS/HR Ondansetron HCl 4 mg Q6HPRN PRN IV 11/26/24 07:15 Sodium Chloride 1,000 ml @ 60 mls/hr [id number] IV 11/27/24 11:00 11/27/24 12:26 60 MLS/HR Pramipexole Dihydrochloride 0.25 mg HS PO 11/28/24 22:00 Examination Physical examination: General Appearance: Alert, Oriented X3, Cooperative, mild distress HEENT: Atraumatic, PERRLA, EOMI, Mucous membrane dry Respiratory: Clear to auscultation, Normal air movement Cardiovascular: Regular rate, Normal S1, Normal S2, No murmurs, no chest wall tenderness Abdominal: Normal bowel sounds, Soft, No tenderness, No hepatospenomegaly, No masses Extremities: bilateral edema +, No clubbing, No cyanosis, Normal pulses, No tenderness/swelling Skin: No rashes, No breakdown, No significant lesion Neuro: Bed bound, Normal speech, Strength at 5/5 X4 ext, Normal tone, Sensation intact, grossly intact cranial nerves. Psych/Mental Status: Mental status NL, Mood NL laboratory and microbiology Laboratory Tests 11/28/24 08:40 11/27/24 05:14 Test 11/28/24 08:40 Range/Units Serum Glucose 92 74-106 mg/dL Microbiology Date/Time Source Procedure Growth Status 11/26/24 17:00 Voided Urine Urine Culture - Preliminary Resulted 11/26/24 06:32 Stool Stool Culture - Preliminary Resulted 11/26/24 06:32 Stool Shiga Toxin I & II - Final Resulted 11/26/24 06:32 Stool Clostridium difficile Toxin Assay - Final Resulted 11/25/24 19:08 Blood Blood Culture - Preliminary NO GROWTH AFTER 48 HOURS OF INCUBATION. Resulted Labs and/or images reviewed: Labs reviewed by me, Image(s) reviewed by me Problem List/Assessment/Plan Problem List/Assessment/Plan Assessment: # LINDA likely secondary to hemodynamically mediated/VMN # LINDA likely secondary to dehydration # Hyperkalemia likely due to LINDA # Dehydration likely due to prolonged intractable nausea and vomiting # Acute complicated Cystitis # Right renal calculi without hydronephrosis # Paroxysmal atrial fibrillation with secondary hypercoagulable state # Chronic systolic heart failure with improved EF 50% Plan/ Recommendations: - Slight improved kidney function. - Cardiac diet - LINDA likely prerenal/ATN, FENa 1.0% - IV normal saline at 60 mL/hour - IV Lasix 60 mg once. - Ultrasound of the kidney ruled out hydronephrosis - Recent echo demonstrated EF 50% - Continue IV antibiotics for UTI as per primary - Pending C/S - Avoid nephrotoxic medication - Strict I&O - We will follow this patient Plan discussed with Dr. Marquez. Plan discussed with: Patient, Other (RN) COLLETTE ROD RESIDENT Nov 28, 2024 10:27
--- NOTE | 2024-11-28 14:23 | DVHPN2 ---
Progress Note - Dictate Date Seen: Nov 28, 2024 Medical Necessity Reason Pt with a Central, PICC or Fol: Yes The following are medically ne: Ya Catheter Subjective Patient eating breakfast comfortably. Denies any new complaints. vital signs Vital Sign Date Time Temp Pulse Resp B/P (MAP) Pulse Ox O2 Delivery O2 Flow Rate FiO2 11/28/24 12:10 98.8 58 20 111/77 (88) 97 98.8 11/28/24 08:00 Room Air* 0 21 Total Intake and Output 11/27/24 11/27/24 11/28/24 15:00 23:00 07:00 Intake Total 0 ml 1860 ml 800 ml Output Total 500 ml 450 ml Balance 0 ml 1360 ml 350 ml medications Current Medications Medications Dose Ordered Sig/Nahid Route Start Time Stop Time Status Last Admin Dose Admin Nitroglycerin 0.4 mg Q5MINP PRN SL 11/25/24 21:45 Morphine Sulfate 2 mg Q30M PRN IV 11/25/24 21:45 Diagnostic Test (Pha) 1 strip ACHS 11/25/24 22:00 11/28/24 10:25 1 STRIP Insulin Human Regular ACHS SC 11/25/24 22:00 Dextrose 50 ml UD PRN IV 11/25/24 21:45 Piperacillin Sod/ Tazobactam Sod 100 ml @ 25 mls/hr Q12HR IV 11/26/24 10:00 11/28/24 10:25 25 MLS/HR Ondansetron HCl 4 mg Q6HPRN PRN IV 11/26/24 07:15 Sodium Chloride 1,000 ml @ 60 mls/hr [id number] IV 11/27/24 11:00 11/27/24 12:26 60 MLS/HR Pramipexole Dihydrochloride 0.25 mg HS PO 11/28/24 22:00 objective General appearance: No acute distress Respiratory: Lungs clear to auscultation. No wheezing, crackles Cardiovascular: Regular rate and rhythm, no murmurs. No edema Abdomen: Soft, nondistended, nontender, bowel sounds present MSK: Normal range of motion. Neuro: Alert. Bilateral upper extremity tremors improved Psych: Appropriate mood and affect. laboratory and microbiology Laboratory Tests 11/28/24 08:40 11/27/24 05:14 Test 11/28/24 08:40 Range/Units Serum Glucose 92 74-106 mg/dL Assessment/Plan 1. LINDA, due to VMN from nausea and vomiting 2. Upper Extremity Tremors 3. Non-obstructive nephrolithiasis 4. Morbid Obesity Plan: - Nephrology consulted for LINDA. No plan for HD at this time. - Repeat echocardiogram pending - Strict I's and O's. Continue Ya catheter - Continue Zosyn for UTI - Neurology consulted for tremors. Started on pramipexole with improvement. -MRI brain does not reveal any cerebral vascular ischemia. Shows moderate to advanced chronic microvascular ischemic changes. - Full code Plan discussed with: Patient LION KARIMI Nov 28, 2024 14:23
[2024-11-28 17:09] LABS: Sodium 143 mmol/L (136-145)
[2024-11-28 17:10] LABS: Anion Gap 11 (5-15); Carbon Dioxide 25 mmol/L (20-31)
[2024-11-28 17:12] LABS: Calcium 8.6 mg/dL (8.7-10.4); Chloride 107 mmol/L (98-107)
[2024-11-28 17:15] LABS: Glucose 104 mg/dL (74-106)
[2024-11-28 17:16] LABS: BUN/Creatinine Ratio 10.6 (10.0-20.0); Blood Urea Nitrogen 60 mg/dL (9-23)
--- NOTE | 2024-11-28 19:06 | DVHPN2 ---
Progress Note - Dictate Date Seen: Nov 28, 2024 Medical Necessity Reason Pt with a Central, PICC or Fol: Yes The following are medically ne: Ya Catheter Subjective Ms. Edward is a 79 years old right-handed female with a history of history of hypertension, diabetes, dyslipidemia, coronary artery disease, heart attack, congestive heart failure, kidney stone, depression, obesity, she was admitted on 11/25/2024 with a chief company of nausea, vomiting, and diarrhea for one month. I have seen and examined the patient, I have discussed with her nurses, she is doing fine, alert oriented x3, the tremors are better today. she reports poor sleep last night but the discomfort and legs was better Urinalysis, 11/25/2024: WBC: 39, urine leukocyte esterase: 3+ WBC/HB/PLT/MCV, 11/27/2024: 8.2/8.9/236/88.3 BUN/CR, 11/27/2024: 69/6.02 Liver function tests, 11/26/2024: Unremarkable Ferritin, 11/27/2024: 629.7 MRI head, 11/27/2024: 1. No acute cerebrovascular ischemia. 2. Moderate to advanced chronic microvascular ischemic changes. 3. Bilateral mastoid effusions vital signs Vital Sign Date Time Temp Pulse Resp B/P (MAP) Pulse Ox O2 Delivery O2 Flow Rate FiO2 11/28/24 17:00 98.1 67 20 127/52 (77) 93 98.1 11/28/24 08:00 Room Air* 0 21 Total Intake and Output 11/27/24 11/27/24 11/28/24 15:00 23:00 07:00 Intake Total 0 ml 1860 ml 800 ml Output Total 500 ml 450 ml Balance 0 ml 1360 ml 350 ml medications Current Medications Medications Dose Ordered Sig/Nahid Route Start Time Stop Time Status Last Admin Dose Admin Nitroglycerin 0.4 mg Q5MINP PRN SL 11/25/24 21:45 Morphine Sulfate 2 mg Q30M PRN IV 11/25/24 21:45 Diagnostic Test (Pha) 1 strip ACHS 11/25/24 22:00 11/28/24 18:03 1 STRIP Insulin Human Regular ACHS SC 11/25/24 22:00 Dextrose 50 ml UD PRN IV 11/25/24 21:45 Piperacillin Sod/ Tazobactam Sod 100 ml @ 25 mls/hr Q12HR IV 11/26/24 10:00 11/28/24 10:25 25 MLS/HR Ondansetron HCl 4 mg Q6HPRN PRN IV 11/26/24 07:15 Sodium Chloride 1,000 ml @ 60 mls/hr [id number] IV 11/27/24 11:00 11/27/24 12:26 60 MLS/HR Pramipexole Dihydrochloride 0.25 mg HS PO 11/28/24 22:00 objective General: the patient is well developed and nourished. No acute distress. MENTAL STATUS: Subjective SPEECH, LANGUAGE, HIGHER CORTICAL FUNCTION: no aphasia or dysathria. CRANIAL NERVES: Pupils are equal, round and reactive. EOMs full and conjugate. Facial sensation intact in all three divisions bilaterally. Mandibular strength intact. Facial muscles symmetrical and strength intact. SENSATION: Sensation to touch and pinprick is fine MOTOR: Normal tone in the upper and lower extremity. Normal muscle bulk. No fasciculations. Mild tremors in the arms and legs, worse on posturing. Muscle strength of the major groups in the extremities is 5/5. REFLEXES: Deep tendon reflexes are symmetrical. No pathological reflexes. CEREBELLAR/COORDINATION: Finger to nose is normal bilaterally. GAIT/STATION: deferred. laboratory and microbiology Laboratory Tests 11/28/24 16:40 11/27/24 05:14 Test 11/28/24 16:40 Range/Units Serum Glucose 104 74-106 mg/dL Problem List Tremors, likely myoclonus triggered by dehydration, kidney failure Metabolic encephalopathy Restless leg syndrome Assessment/Plan Monitoring Supportive treatment Telemetry EEG Mirapex 0.25 mg in the evening Nephrology consultation This medical document was created using an electronic medical record system with [email or web address] dictation system. Although this document has been carefully reviewed, there may still be some phonetic and typographical errors. These areas are purely typographical due to imperfections of the software programs, and do not reflect any compromise in the patient's medical car Prognosis poor Plan discussed with: Patient, Other ANGEL LUIS WYATT MD Nov 28, 2024 19:06
[2024-11-28] MEDS: PRAMIPEXOLE DIHYDROCHLORIDE MO 0.25 MG TAB PO SCH (21:14)
[2024-11-29] VITALS (7 sets, daily range): BP systolic 120–144; BP diastolic 42–68; PULSE 60–74; RESP 16–18; TEMP 97.8–98.1; O2SAT 94–96
[2024-11-29 05:44] LABS: Anion Gap 12 (5-15); Carbon Dioxide 24 mmol/L (20-31); Potassium 3.7 mmol/L (3.5-5.1); Sodium 143 mmol/L (136-145)
[2024-11-29 05:45] LABS: Chloride 107 mmol/L (98-107)
[2024-11-29 05:50] LABS: BUN/Creatinine Ratio 10.2 (10.0-20.0); Glucose 91 mg/dL (74-106)
[2024-11-29 05:53] LABS: Blood Urea Nitrogen 54 mg/dL (9-23)
--- NOTE | 2024-11-29 14:04 | DVHPN2 ---
Progress Note - Dictate Date Seen: Nov 29, 2024 Medical Necessity Reason Pt with a Central, PICC or Fol: Yes The following are medically ne: Ya Catheter Subjective Patient comfortable. Notes weakness and has not been out of bed since admission. vital signs Vital Sign Date Time Temp Pulse Resp B/P (MAP) Pulse Ox O2 Delivery O2 Flow Rate FiO2 11/29/24 09:00 98.0 66 18 144/54 (84) 96 98.0 11/29/24 08:00 Room Air* 0 21 Total Intake and Output 11/28/24 11/28/24 11/29/24 15:00 23:00 07:00 Intake Total 100 ml 1040 ml 650 ml Output Total 1050 ml 300 ml Balance 100 ml -10 ml 350 ml medications Current Medications Medications Dose Ordered Sig/Nahid Route Start Time Stop Time Status Last Admin Dose Admin Nitroglycerin 0.4 mg Q5MINP PRN SL 11/25/24 21:45 Morphine Sulfate 2 mg Q30M PRN IV 11/25/24 21:45 Diagnostic Test (Pha) 1 strip ACHS 11/25/24 22:00 11/29/24 11:15 1 STRIP Insulin Human Regular ACHS SC 11/25/24 22:00 Dextrose 50 ml UD PRN IV 11/25/24 21:45 Piperacillin Sod/ Tazobactam Sod 100 ml @ 25 mls/hr Q12HR IV 11/26/24 10:00 11/29/24 09:52 25 MLS/HR Ondansetron HCl 4 mg Q6HPRN PRN IV 11/26/24 07:15 Sodium Chloride 1,000 ml @ 60 mls/hr [id number] IV 11/27/24 11:00 11/27/24 12:26 60 MLS/HR Pramipexole Dihydrochloride 0.25 mg HS PO 11/28/24 22:00 11/28/24 21:14 0.25 MG objective General appearance: No acute distress Respiratory: Lungs clear to auscultation. No wheezing, crackles Cardiovascular: Regular rate and rhythm, no murmurs. No edema Abdomen: Soft, nondistended, nontender, bowel sounds present MSK: Normal range of motion. Neuro: Alert. Bilateral upper extremity tremors improved Psych: Appropriate mood and affect. laboratory and microbiology Laboratory Tests 11/29/24 05:09 11/27/24 05:14 Test 11/29/24 05:09 Range/Units Serum Glucose 91 74-106 mg/dL Assessment/Plan 1. LINDA, due to VMN from nausea and vomiting 2. Upper Extremity Tremors 3. Non-obstructive nephrolithiasis 4. Morbid Obesity Plan: - Nephrology consulted for LINDA. No plan for HD at this time. LINDA improving. Concern for underlying ATN. - TTE does not show any CHF - Strict I's and O's. Continue Ya catheter - Continue Zosyn for UTI - Neurology consulted for tremors. Started on pramipexole with improvement. -MRI brain does not reveal any cerebral vascular ischemia. Shows moderate to advanced chronic microvascular ischemic changes. -PT eval ordered, possible dc to SNF for further PT - Full code Plan discussed with: Patient LION KARIMI DO Nov 29, 2024 14:04
--- NOTE | 2024-11-29 14:29 | DVHPN2 ---
Progress Note Date Seen: Nov 29, 2024 Medical Necessity Reason Pt with a Central, PICC or Fol: Yes The following are medically ne: Ya Catheter Subjective Patient reports: Feels better Objective vital signs Vital Sign Date Time Temp Pulse Resp B/P (MAP) Pulse Ox O2 Delivery O2 Flow Rate FiO2 11/29/24 13:00 98.1 60 18 127/68 (87) 94 98.1 11/29/24 08:00 Room Air* 0 21 Total Intake and Output 11/28/24 11/28/24 11/29/24 15:00 23:00 07:00 Intake Total 100 ml 1040 ml 650 ml Output Total 1050 ml 300 ml Balance 100 ml -10 ml 350 ml medications Current Medications Medications Dose Ordered Sig/Nahid Route Start Time Stop Time Status Last Admin Dose Admin Nitroglycerin 0.4 mg Q5MINP PRN SL 11/25/24 21:45 Morphine Sulfate 2 mg Q30M PRN IV 11/25/24 21:45 Diagnostic Test (Pha) 1 strip ACHS 11/25/24 22:00 11/29/24 11:15 1 STRIP Insulin Human Regular ACHS SC 11/25/24 22:00 Dextrose 50 ml UD PRN IV 11/25/24 21:45 Piperacillin Sod/ Tazobactam Sod 100 ml @ 25 mls/hr Q12HR IV 11/26/24 10:00 11/29/24 09:52 25 MLS/HR Ondansetron HCl 4 mg Q6HPRN PRN IV 11/26/24 07:15 Sodium Chloride 1,000 ml @ 60 mls/hr [id number] IV 11/27/24 11:00 11/29/24 14:02 60 MLS/HR Pramipexole Dihydrochloride 0.25 mg HS PO 11/28/24 22:00 11/28/24 21:14 0.25 MG Examination: GENERAL:Abnormal, CVS:Abnormal, SKIN:Normal laboratory and microbiology Laboratory Tests 11/29/24 05:09 11/27/24 05:14 Test 11/29/24 05:09 Range/Units Serum Glucose 91 74-106 mg/dL Microbiology Date/Time Source Procedure Growth Status 11/26/24 17:00 Voided Urine Urine Culture - Final Escherichia coli Complete 11/26/24 06:32 Stool Stool Culture - Preliminary Resulted 11/26/24 06:32 Stool Shiga Toxin I & II - Final Resulted 11/26/24 06:32 Stool Clostridium difficile Toxin Assay - Final Resulted 11/25/24 19:08 Blood Blood Culture - Preliminary NO GROWTH AFTER 72 HOURS OF INCUBATION. Resulted Problem List/Assessment/Plan Problem List/Assessment/Plan 79-year-old morbidly obese elderly female with past medical history of pulmonary embolism previously on anticoagulation, and congestive heart failure presented to the hospital with a several days of nausea vomiting decreased p.o. intake in the setting of urinary tract infection. Acute kidney injury hemodynamic in the setting of urinary tract infection Altered mental state secondary to sepsis Chronic kidney disease stage 3 as of 2022 Urinary tract infection Kidney stones Patient's urinary output has increased however there has not been any large notable improvement in renal function. Discontinue IV fluids Encourage p.o. Start Lasix IV daily. Replace electrolytes Continue antibiotics for urinary infection There is no overt indication for hemodialysis at this time however patient will require close outpatient follow-up Plan discussed with: Patient My Orders My Orders Orders - TOM MCKEON MD Procedure Category Date Status Time Basic Metabolic Panel LAB 11/30/24 Verified 04:00 Furosemide Injection PHA 11/29/24 Transmitted (Lasix Injection) 14:30 TOM MCKEON MD Nov 29, 2024 14:29
[2024-11-29] MEDS: FUROSEMIDE 40 MG/4 ML VIAL IV SCH (15:03)
--- NOTE | 2024-11-29 21:21 | DVHPN2 ---
Progress Note - Dictate Date Seen: Nov 29, 2024 Medical Necessity Reason Pt with a Central, PICC or Fol: Yes The following are medically ne: Ya Catheter Subjective Ms. Edward is a 79 years old right-handed female with a history of history of hypertension, diabetes, dyslipidemia, coronary artery disease, heart attack, congestive heart failure, kidney stone, depression, obesity, she was admitted on 11/25/2024 with a chief company of nausea, vomiting, and diarrhea for one month. I have seen and examined the patient, I have discussed with her nurses, she is doing fine, alert oriented x3, reports no tremors today. Leg discomfort is better Urinalysis, 11/25/2024: WBC: 39, urine leukocyte esterase: 3+ WBC/HB/PLT/MCV, 11/27/2024: 8.2/8.9/236/88.3 BUN/CR, 11/27/2024: 69/6.02 Liver function tests, 11/26/2024: Unremarkable Ferritin, 11/27/2024: 629.7 MRI head, 11/27/2024: 1. No acute cerebrovascular ischemia. 2. Moderate to advanced chronic microvascular ischemic changes. 3. Bilateral mastoid effusions vital signs Vital Sign Date Time Temp Pulse Resp B/P (MAP) Pulse Ox O2 Delivery O2 Flow Rate FiO2 11/29/24 21:00 97.8 63 16 134/62 (86) 95 97.8 11/29/24 08:00 Room Air* 0 21 Total Intake and Output 11/28/24 11/28/24 11/29/24 15:00 23:00 07:00 Intake Total 100 ml 1040 ml 650 ml Output Total 1050 ml 300 ml Balance 100 ml -10 ml 350 ml medications Current Medications Medications Dose Ordered Sig/Nahid Route Start Time Stop Time Status Last Admin Dose Admin Nitroglycerin 0.4 mg Q5MINP PRN SL 11/25/24 21:45 Morphine Sulfate 2 mg Q30M PRN IV 11/25/24 21:45 Diagnostic Test (Pha) 1 strip ACHS 11/25/24 22:00 11/29/24 17:06 1 STRIP Insulin Human Regular ACHS SC 11/25/24 22:00 Dextrose 50 ml UD PRN IV 11/25/24 21:45 Piperacillin Sod/ Tazobactam Sod 100 ml @ 25 mls/hr Q12HR IV 11/26/24 10:00 11/29/24 09:52 25 MLS/HR Ondansetron HCl 4 mg Q6HPRN PRN IV 11/26/24 07:15 Pramipexole Dihydrochloride 0.25 mg HS PO 11/28/24 22:00 11/28/24 21:14 0.25 MG Furosemide 40 mg DAILY IV 11/29/24 14:30 11/29/24 15:03 40 MG objective General: the patient is well developed and nourished. No acute distress. MENTAL STATUS: Subjective SPEECH, LANGUAGE, HIGHER CORTICAL FUNCTION: no aphasia or dysathria. CRANIAL NERVES: Pupils are equal, round and reactive. EOMs full and conjugate. Facial sensation intact in all three divisions bilaterally. Mandibular strength intact. Facial muscles symmetrical and strength intact. SENSATION: Sensation to touch and pinprick is fine MOTOR: Normal tone in the upper and lower extremity. Normal muscle bulk. No fasciculations. Mild tremors in the arms and legs, worse on posturing. Muscle strength of the major groups in the extremities is 5/5. REFLEXES: Deep tendon reflexes are symmetrical. No pathological reflexes. CEREBELLAR/COORDINATION: Finger to nose is normal bilaterally. GAIT/STATION: deferred. laboratory and microbiology Laboratory Tests 11/29/24 05:09 11/27/24 05:14 Test 11/29/24 05:09 Range/Units Serum Glucose 91 74-106 mg/dL Problem List Tremors, likely myoclonus triggered by dehydration, kidney failure Metabolic encephalopathy Restless leg syndrome Assessment/Plan Monitoring Supportive treatment Telemetry EEG Mirapex 0.25 mg in the evening Nephrology consultation This medical document was created using an electronic medical record system with [employer] dictation system. Although this document has been carefully reviewed, there may still be some phonetic and typographical errors. These areas are purely typographical due to imperfections of the software programs, and do not reflect any compromise in the patient's medical car Prognosis poor Plan discussed with: Patient, Other ANGEL LUIS WYATT MD Nov 29, 2024 21:21
--- NOTE | 2024-11-29 23:46 | DVHEEG2 ---
Neurology EEG Procedural Note Procedural Note EXAM DATE: 11/30/2023 REFERRING DOCTOR: Dr. Wyatt TECHNIQUE: Eighteen channels of EEG, 2 channels of EOG, and 1 channel of EKG were recorded using the International 10/20 system. CLINICAL DATA: The patient was referred for an EEG evaluation for the evidence of seizure disorder. MEDICATIONS: See chart BACKGROUND ACTIVITY: While the patient was awake, the background activity consisted of well regulated 8 Hz rhythmic waveforms, symmetrically distributed over both posterior quadrants and was reactive to eye opening. ACTIVATION: Hyperventilation: Not done Photic Stimulation: No photic convulsive response Sleep: Noticed IMPRESSION: This is a normal EEG. No focal, lateralized, or epileptiform features are noted. If clinically indicated to rule out a seizure disorder, recommend repeat EEG with sleep deprivation. The EKG channel showed a regular heart rate of 60 per minute. [place] [address] ANGEL LUIS WYATT MD Nov 29, 2024 23:46
[2024-11-30] VITALS (8 sets, daily range): BP systolic 107–180; BP diastolic 40–75; PULSE 57–66; RESP 16–18; TEMP 97–98.4; O2SAT 92–96
[2024-11-30 06:15] LABS: Sodium 143 mmol/L (136-145)
[2024-11-30 06:16] LABS: Anion Gap 11 (5-15); Calcium 9.2 mg/dL (8.7-10.4); Carbon Dioxide 24 mmol/L (20-31)
[2024-11-30 06:20] LABS: Chloride 108 mmol/L (98-107); Potassium 3.4 mmol/L (3.5-5.1)
[2024-11-30 06:21] LABS: BUN/Creatinine Ratio 9.1 (10.0-20.0); Blood Urea Nitrogen 45 mg/dL (9-23); Glucose 85 mg/dL (74-106)
[2024-11-30] MEDS: ONDANSETRON HCL 4 MG/2 ML VIAL IV PRN (09:00)
--- NOTE | 2024-11-30 12:17 | DVHPN2 ---
Progress Note Date Seen: Nov 30, 2024 Medical Necessity Reason Pt with a Central, PICC or Fol: Yes The following are medically ne: Ya Catheter Objective vital signs Vital Sign Date Time Temp Pulse Resp B/P (MAP) Pulse Ox O2 Delivery O2 Flow Rate FiO2 11/30/24 09:00 128/60 11/30/24 08:54 98.1 60 18 95 98.1 11/30/24 08:00 Room Air* 0 21 Total Intake and Output 11/29/24 11/29/24 11/30/24 15:00 23:00 07:00 Intake Total 1400 ml 50 ml 750 ml Output Total 500 ml 850 ml Balance 1400 ml -450 ml -100 ml medications Current Medications Medications Dose Ordered Sig/Nahid Route Start Time Stop Time Status Last Admin Dose Admin Nitroglycerin 0.4 mg Q5MINP PRN SL 11/25/24 21:45 Morphine Sulfate 2 mg Q30M PRN IV 11/25/24 21:45 Diagnostic Test (Pha) 1 strip ACHS 11/25/24 22:00 11/30/24 06:17 1 STRIP Insulin Human Regular ACHS SC 11/25/24 22:00 Dextrose 50 ml UD PRN IV 11/25/24 21:45 Piperacillin Sod/ Tazobactam Sod 100 ml @ 25 mls/hr Q12HR IV 11/26/24 10:00 11/30/24 09:00 25 MLS/HR Ondansetron HCl 4 mg Q6HPRN PRN IV 11/26/24 07:15 11/30/24 09:00 4 MG Pramipexole Dihydrochloride 0.25 mg HS PO 11/28/24 22:00 11/29/24 22:10 0.25 MG Furosemide 40 mg DAILY IV 11/29/24 14:30 11/30/24 09:00 40 MG Examination: GENERAL:Normal, CVS:Normal, SKIN:Normal laboratory and microbiology Laboratory Tests 11/30/24 05:25 11/27/24 05:14 Test 11/30/24 05:25 Range/Units Serum Glucose 85 74-106 mg/dL Microbiology Date/Time Source Procedure Growth Status 11/26/24 17:00 Voided Urine Urine Culture - Final Escherichia coli Complete 11/26/24 06:32 Stool Stool Culture - Final Complete 11/26/24 06:32 Stool Shiga Toxin I & II - Final Complete 11/26/24 06:32 Stool Clostridium difficile Toxin Assay - Final Complete 11/25/24 19:08 Blood Blood Culture - Preliminary NO GROWTH AFTER 72 HOURS OF INCUBATION. Resulted Problem List/Assessment/Plan Problem List/Assessment/Plan 79-year-old morbidly obese elderly female with past medical history of pulmonary embolism previously on anticoagulation, and congestive heart failure presented to the hospital with a several days of nausea vomiting decreased p.o. intake in the setting of urinary tract infection. Acute kidney injury hemodynamic in the setting of urinary tract infection Altered mental state secondary to sepsis Chronic kidney disease stage 3 as of 2022 Urinary tract infection Kidney stones Patient's urinary output has increased however there has not been any large notable improvement in renal function. Discontinue IV fluids Encourage p.o. Start Lasix IV daily. potassium replacement Replace electrolytes Continue antibiotics for urinary infection There is no overt indication for hemodialysis at this time however patient will require close outpatient follow-up Plan discussed with: Patient My Orders My Orders Orders - TOM MCKEON MD Procedure Category Date Status Time Furosemide Injection PHA 11/29/24 In Process (Lasix Injection) 14:30 TOM MCKEON MD Nov 30, 2024 12:17
--- NOTE | 2024-11-30 12:20 | DVHPN2 ---
Progress Note - Dictate Date Seen: Nov 30, 2024 Medical Necessity Reason Pt with a Central, PICC or Fol: Yes The following are medically ne: Ya Catheter Subjective Patient comfortable. Refused PT due to back pain. vital signs Vital Sign Date Time Temp Pulse Resp B/P (MAP) Pulse Ox O2 Delivery O2 Flow Rate FiO2 11/30/24 09:00 128/60 11/30/24 08:54 98.1 60 18 95 98.1 11/30/24 08:00 Room Air* 0 21 Total Intake and Output 11/29/24 11/29/24 11/30/24 15:00 23:00 07:00 Intake Total 1400 ml 50 ml 750 ml Output Total 500 ml 850 ml Balance 1400 ml -450 ml -100 ml medications Current Medications Medications Dose Ordered Sig/Nahid Route Start Time Stop Time Status Last Admin Dose Admin Nitroglycerin 0.4 mg Q5MINP PRN SL 11/25/24 21:45 Morphine Sulfate 2 mg Q30M PRN IV 11/25/24 21:45 Diagnostic Test (Pha) 1 strip ACHS 11/25/24 22:00 11/30/24 06:17 1 STRIP Insulin Human Regular ACHS SC 11/25/24 22:00 Dextrose 50 ml UD PRN IV 11/25/24 21:45 Piperacillin Sod/ Tazobactam Sod 100 ml @ 25 mls/hr Q12HR IV 11/26/24 10:00 11/30/24 09:00 25 MLS/HR Ondansetron HCl 4 mg Q6HPRN PRN IV 11/26/24 07:15 11/30/24 09:00 4 MG Pramipexole Dihydrochloride 0.25 mg HS PO 11/28/24 22:00 11/29/24 22:10 0.25 MG Furosemide 40 mg DAILY IV 11/29/24 14:30 11/30/24 09:00 40 MG objective General appearance: No acute distress Respiratory: Lungs clear to auscultation. No wheezing, crackles Cardiovascular: Regular rate and rhythm, no murmurs. No edema Abdomen: Soft, nondistended, nontender, bowel sounds present MSK: Normal range of motion. Neuro: Alert. Bilateral upper extremity tremors improved Psych: Appropriate mood and affect. laboratory and microbiology Laboratory Tests 11/30/24 05:25 11/27/24 05:14 Test 11/30/24 05:25 Range/Units Serum Glucose 85 74-106 mg/dL Assessment/Plan 1. LINDA, due to VMN from nausea and vomiting 2. Upper Extremity Tremors 3. Non-obstructive nephrolithiasis 4. Morbid Obesity Plan: - Nephrology consulted for LINDA. No plan for HD at this time. LINDA improving. Concern for underlying ATN. Lasix started. - TTE does not show any CHF - Strict I's and O's. Continue Ya catheter - Continue Zosyn for UTI - Neurology consulted for tremors. Started on pramipexole with improvement. -MRI brain does not reveal any cerebral vascular ischemia. Shows moderate to advanced chronic microvascular ischemic changes. -PT eval ordered, pt refused PT due to low back pain and states she is not interested in further PT. Was previously at prior SNF and was not doing PT there as well for same reasons. - Full code Plan discussed with: Patient LION KARIMI DO Nov 30, 2024 12:20
[2024-11-30] MEDS: POTASSIUM CHL 20 Meq TABLET PO ONE (12:55)
[2024-12-01 05:00] VITALS: BP 145/53; PULSE 62; RESP 16; TEMP 97; O2SAT 96
[2024-12-01 07:12] LABS: Chloride 106 mmol/L (98-107); Potassium 3.7 mmol/L (3.5-5.1); Sodium 144 mmol/L (136-145)
[2024-12-01 07:13] LABS: Anion Gap 14 (5-15); Calcium 8.8 mg/dL (8.7-10.4); Carbon Dioxide 24 mmol/L (20-31)
[2024-12-01 07:18] LABS: BUN/Creatinine Ratio 8.6 (10.0-20.0)
[2024-12-01 07:21] LABS: Blood Urea Nitrogen 41 mg/dL (9-23); Glucose 72 mg/dL (74-106)
[2024-12-01 08:00] VITALS: PULSE 59; PULSE 64; RESP 18; O2SAT 97
[2024-12-01 09:00] VITALS: BP 137/65; PULSE 64; RESP 16; TEMP 97.6; O2SAT 97
--- NOTE | 2024-12-01 10:07 | DVHPN2 ---
Progress Note - Dictate Date Seen: Dec 01, 2024 Medical Necessity Reason Pt with a Central, PICC or Fol: Yes The following are medically ne: Ya Catheter Subjective Ms. Edward is a 79 years old right-handed female with a history of history of hypertension, diabetes, dyslipidemia, coronary artery disease, heart attack, congestive heart failure, kidney stone, depression, obesity, she was admitted on 11/25/2024 with a chief company of nausea, vomiting, and diarrhea for one month. I have seen and examined the patient, I have discussed with her nurses, alert oriented x3, no tremor or jerky movement The nocturnal discomfort in the legs is doing fine Urinalysis, 11/25/2024: WBC: 39, urine leukocyte esterase: 3+ WBC/HB/PLT/MCV, 11/27/2024: 8.2/8.9/236/88.3 BUN/CR, 11/27/2024: 69/6.02 Liver function tests, 11/26/2024: Unremarkable Ferritin, 11/27/2024: 629.7 EEG, 11/29/2024: Normal MRI head, 11/27/2024: 1. No acute cerebrovascular ischemia. 2. Moderate to advanced chronic microvascular ischemic changes. 3. Bilateral mastoid effusions vital signs Vital Sign Date Time Temp Pulse Resp B/P (MAP) Pulse Ox O2 Delivery O2 Flow Rate FiO2 12/01/24 09:00 97.6 64 16 137/65 (89) 97 97.6 11/30/24 20:00 Room Air* 0 21 Total Intake and Output 11/30/24 11/30/24 12/01/24 15:00 23:00 07:00 Intake Total 100 ml 1020 ml 100 ml Output Total 800 ml 650 ml Balance 100 ml 220 ml -550 ml medications Current Medications Medications Dose Ordered Sig/Nahid Route Start Time Stop Time Status Last Admin Dose Admin Nitroglycerin 0.4 mg Q5MINP PRN SL 11/25/24 21:45 Morphine Sulfate 2 mg Q30M PRN IV 11/25/24 21:45 Diagnostic Test (Pha) 1 strip ACHS 11/25/24 22:00 12/01/24 05:49 1 STRIP Insulin Human Regular ACHS SC 11/25/24 22:00 Dextrose 50 ml UD PRN IV 11/25/24 21:45 Piperacillin Sod/ Tazobactam Sod 100 ml @ 25 mls/hr Q12HR IV 11/26/24 10:00 11/30/24 21:37 25 MLS/HR Ondansetron HCl 4 mg Q6HPRN PRN IV 11/26/24 07:15 11/30/24 09:00 4 MG Pramipexole Dihydrochloride 0.25 mg HS PO 11/28/24 22:00 11/30/24 21:36 0.25 MG Furosemide 40 mg DAILY IV 11/29/24 14:30 11/30/24 09:00 40 MG objective General: the patient is well developed and nourished. No acute distress. MENTAL STATUS: Subjective SPEECH, LANGUAGE, HIGHER CORTICAL FUNCTION: no aphasia or dysathria. CRANIAL NERVES: Pupils are equal, round and reactive. EOMs full and conjugate. Facial sensation intact in all three divisions bilaterally. Mandibular strength intact. Facial muscles symmetrical and strength intact. SENSATION: Sensation to touch and pinprick is fine MOTOR: Normal tone in the upper and lower extremity. Normal muscle bulk. No fasciculations. Mild tremors in the arms and legs, worse on posturing. Muscle strength of the major groups in the extremities is 5/5. REFLEXES: Deep tendon reflexes are symmetrical. No pathological reflexes. CEREBELLAR/COORDINATION: Finger to nose is normal bilaterally. GAIT/STATION: deferred. laboratory and microbiology Laboratory Tests 12/01/24 05:06 11/27/24 05:14 Test 12/01/24 05:06 Range/Units Serum Glucose 72 L 74-106 mg/dL Problem List Tremors, likely myoclonus triggered by dehydration, kidney failure Metabolic encephalopathy Restless leg syndrome Assessment/Plan Monitoring Supportive treatment Telemetry Mirapex 0.25 mg in the evening Nephrology consultation This medical document was created using an electronic medical record system with [employer] dictation system. Although this document has been carefully reviewed, there may still be some phonetic and typographical errors. These areas are purely typographical due to imperfections of the software programs, and do not reflect any compromise in the patient's medical car Prognosis poor Dietary Evaluation Review Recommendations by RD: Dietary education by RD Comments: 1) Initiate Nepro Carb Steady @ 8 fl oz qd 2) Encourage optimal PO intake 3) Refer to outpatient RD/CD[facility] for weight management 4) Follow-up with cardiology and nephrology 5) Continue to monitor I&O, labs, and skin integrity Expected Outcomes/Goals: 1) appetite and labs to improve 2) f/u in 3-5 days Plan discussed with: Patient, Other ANGEL LUIS WYATT MD Dec 01, 2024 10:07
--- NOTE | 2024-12-01 10:51 | DVHPN2 ---
Progress Note - Dictate Date Seen: Dec 01, 2024 Medical Necessity Reason Pt with a Central, PICC or Fol: Yes The following are medically ne: Ya Catheter Subjective Patient comfortable. No new complaints. vital signs Vital Sign Date Time Temp Pulse Resp B/P (MAP) Pulse Ox O2 Delivery O2 Flow Rate FiO2 12/01/24 09:00 97.6 64 16 137/65 (89) 97 97.6 11/30/24 20:00 Room Air* 0 21 Total Intake and Output 11/30/24 11/30/24 12/01/24 15:00 23:00 07:00 Intake Total 100 ml 1020 ml 100 ml Output Total 800 ml 650 ml Balance 100 ml 220 ml -550 ml medications Current Medications Medications Dose Ordered Sig/Nahid Route Start Time Stop Time Status Last Admin Dose Admin Nitroglycerin 0.4 mg Q5MINP PRN SL 11/25/24 21:45 Morphine Sulfate 2 mg Q30M PRN IV 11/25/24 21:45 Diagnostic Test (Pha) 1 strip ACHS 11/25/24 22:00 12/01/24 05:49 1 STRIP Insulin Human Regular ACHS SC 11/25/24 22:00 Dextrose 50 ml UD PRN IV 11/25/24 21:45 Piperacillin Sod/ Tazobactam Sod 100 ml @ 25 mls/hr Q12HR IV 11/26/24 10:00 11/30/24 21:37 25 MLS/HR Ondansetron HCl 4 mg Q6HPRN PRN IV 11/26/24 07:15 11/30/24 09:00 4 MG Pramipexole Dihydrochloride 0.25 mg HS PO 11/28/24 22:00 11/30/24 21:36 0.25 MG Furosemide 40 mg DAILY IV 11/29/24 14:30 11/30/24 09:00 40 MG objective General appearance: No acute distress Respiratory: Lungs clear to auscultation. No wheezing, crackles Cardiovascular: Regular rate and rhythm, no murmurs. No edema Abdomen: Soft, nondistended, nontender, bowel sounds present MSK: Normal range of motion. Neuro: Alert. Bilateral upper extremity tremors improved Psych: Appropriate mood and affect. laboratory and microbiology Laboratory Tests 12/01/24 05:06 11/27/24 05:14 Test 12/01/24 05:06 Range/Units Serum Glucose 72 L 74-106 mg/dL Assessment/Plan 1. LINDA, due to VMN from nausea and vomiting 2. Upper Extremity Tremors 3. Non-obstructive nephrolithiasis 4. Morbid Obesity Plan: - Nephrology consulted for LINDA. No plan for HD at this time. LINDA improving. Concern for underlying ATN. Lasix started. - TTE does not show any CHF - Strict I's and O's. Continue Ya catheter - Continue Zosyn for UTI - Neurology consulted for tremors. Started on pramipexole with improvement for restless leg syndrome. Tremors likely due to metabolic etiology, likely uremia. -MRI brain does not reveal any cerebral vascular ischemia. Shows moderate to advanced chronic microvascular ischemic changes. -PT eval ordered, pt refused PT due to low back pain and states she is not interested in further PT. Was previously at prior SNF and was not doing PT there as well for same reasons. -DC pending continued improvement in renal function - Full code Dietary Evaluation Review Recommendations by RD: Dietary education by RD Comments: 1) Initiate Nepro Carb Steady @ 8 fl oz qd 2) Encourage optimal PO intake 3) Refer to outpatient RD/[facility] for weight management 4) Follow-up with cardiology and nephrology 5) Continue to monitor I&O, labs, and skin integrity Expected Outcomes/Goals: 1) appetite and labs to improve 2) f/u in 3-5 days Plan discussed with: Patient LION KARIMI Dec 01, 2024 10:51
[2024-12-01 17:00] VITALS: BP 163/74; PULSE 59; RESP 18; TEMP 98.4; O2SAT 96
--- NOTE | 2024-12-01 18:51 | DVHPN2 ---
Progress Note Date Seen: Dec 01, 2024 Medical Necessity Reason Pt with a Central, PICC or Fol: Yes The following are medically ne: Ya Catheter Subjective Patient reports: Other (Feels uncomfortable) Review of Systems: Deferred Objective vital signs Vital Sign Date Time Temp Pulse Resp B/P (MAP) Pulse Ox O2 Delivery O2 Flow Rate FiO2 12/01/24 17:00 98.4 59 18 163/74 (103) 96 98.4 12/01/24 08:00 Room Air* 0 21 Total Intake and Output 11/30/24 11/30/24 12/01/24 14:59 22:59 06:59 Intake Total 100 ml 1020 ml 100 ml Output Total 800 ml 650 ml Balance 100 ml 220 ml -550 ml medications Current Medications Medications Dose Ordered Sig/Nahid Route Start Time Stop Time Status Last Admin Dose Admin Nitroglycerin 0.4 mg Q5MINP PRN SL 11/25/24 21:45 Morphine Sulfate 2 mg Q30M PRN IV 11/25/24 21:45 Diagnostic Test (Pha) 1 strip ACHS 11/25/24 22:00 12/01/24 17:00 1 STRIP Insulin Human Regular ACHS SC 11/25/24 22:00 Dextrose 50 ml UD PRN IV 11/25/24 21:45 Piperacillin Sod/ Tazobactam Sod 100 ml @ 25 mls/hr Q12HR IV 11/26/24 10:00 12/01/24 10:54 25 MLS/HR Ondansetron HCl 4 mg Q6HPRN PRN IV 11/26/24 07:15 11/30/24 09:00 4 MG Pramipexole Dihydrochloride 0.25 mg HS PO 11/28/24 22:00 11/30/24 21:36 0.25 MG Furosemide 40 mg DAILY IV 11/29/24 14:30 12/01/24 10:54 40 MG Examination: GENERAL:Normal, LUNGS:Normal, CVS:Normal, MSK:Normal laboratory and microbiology Laboratory Tests 12/01/24 05:06 11/27/24 05:14 Test 12/01/24 05:06 Range/Units Serum Glucose 72 L 74-106 mg/dL Microbiology Date/Time Source Procedure Growth Status 11/26/24 17:00 Voided Urine Urine Culture - Final Escherichia coli Complete 11/26/24 06:32 Stool Stool Culture - Final Complete 11/26/24 06:32 Stool Shiga Toxin I & II - Final Complete 11/26/24 06:32 Stool Clostridium difficile Toxin Assay - Final Complete 11/25/24 19:08 Blood Blood Culture - Final NO GROWTH AFTER 5 DAYS OF INCUBATION. Complete Problem List/Assessment/Plan Problem List/Assessment/Plan Acute kidney injury hemodynamic in the setting of urinary tract infection Altered mental state secondary to sepsis Chronic kidney disease stage 3 as of 2022 Urinary tract infection Kidney stones Recommendations Renal function stable continue IV Lasix daily Urine output slightly better Plan discussed with: Patient Dietary Evaluation Review Recommendations by RD: Dietary education by RD Comments: 1) Initiate Nepro Carb Steady @ 8 fl oz qd 2) Encourage optimal PO intake 3) Refer to outpatient RD/[facility] for weight management 4) Follow-up with cardiology and nephrology 5) Continue to monitor I&O, labs, and skin integrity Expected Outcomes/Goals: 1) appetite and labs to improve 2) f/u in 3-5 days SUZANNE RODRIGUEZ MD Dec 01, 2024 18:51
[2024-12-01 20:00] VITALS: PULSE 61
[2024-12-01 21:00] VITALS: BP 143/59; PULSE 59; RESP 14; TEMP 97.8; O2SAT 97
[2024-12-02] VITALS (8 sets, daily range): BP systolic 126–148; BP diastolic 56–88; PULSE 58–64; RESP 17–20; TEMP 97.5–98.7; O2SAT 94–95
[2024-12-02 09:55] LABS: Alanine Aminotransferase 23 U/L (7-40); Alkaline Phosphatase 79 U/L (46-116); Anion Gap 11 (5-15); Aspartate Aminotransferase 17 U/L (<34); BUN/Creatinine Ratio 7.9 (10.0-20.0); Carbon Dioxide 26 mmol/L (20-31); Potassium 3.7 mmol/L (3.5-5.1); Sodium 144 mmol/L (136-145)
[2024-12-02 09:56] LABS: Bilirubin, Total 0.4 mg/dL (0.2-1.0)
[2024-12-02 09:58] LABS: Basophils # (auto) 0.1 10 ^3/uL (0-0.2); Basophils % (auto) 1.2 % (0.0-2.0); Eosinophils # (auto) 0.9 10 ^3/uL (0-0.8); Eosinophils % (auto) 9.5 % (0.0-7.0); Hematocrit 29.2 % (36.0-46.0); Hemoglobin 9.7 g/dL (12.2-16.2); Lymphocytes # (auto) 1.2 10 ^3/uL (0.4-5.4); Lymphocytes % (auto) 12.8 % (10.0-50.0); Mean Corpuscular Hemoglobin 29.3 pg (28.0-32.0); Mean Corpuscular Hgb Conc. 33.3 g/dL (32.0-36.0); Monocytes # (auto) 1.1 10 ^3/uL (0-1.3); Monocytes % (auto) 11.8 % (0.0-12.0); Neutrophils # (auto) 6.1 10 ^3/uL (1.6-8.6); Neutrophils % (auto) 64.7 % (37.0-80.0); Platelet Count (auto) 214 10^3/uL (140-450); Red Blood Cells 3.31 10^6/uL (4.0-5.20); Red Cell Distribution Width 14.6 % (11.8-14.3); White Blood Cell 9.4 10^3/uL (4.4-10.8)
[2024-12-02 10:18] LABS: Albumin 3.1 g/dL (3.2-4.8); Blood Urea Nitrogen 37 mg/dL (9-23); Chloride 107 mmol/L (98-107); Glucose 112 mg/dL (74-106)
--- NOTE | 2024-12-02 10:53 | DVHPN2 ---
Progress Note - Dictate Date Seen: Dec 02, 2024 Medical Necessity Reason Pt with a Central, PICC or Fol: Yes The following are medically ne: Ya Catheter Subjective Ms. Edward is a 79 years old right-handed female with a history of history of hypertension, diabetes, dyslipidemia, coronary artery disease, heart attack, congestive heart failure, kidney stone, depression, obesity, she was admitted on 11/25/2024 with a chief company of nausea, vomiting, and diarrhea for one month. I have seen and examined the patient, I have discussed with her nurses, alert oriented x3, no new complaint I have discussed the case with Dr. Dao Urinalysis, 11/25/2024: WBC: 39, urine leukocyte esterase: 3+ WBC/HB/PLT/MCV, 11/27/2024: 8.2/8.9/236/88.3 BUN/CR, 11/27/2024: 69/6.02 Liver function tests, 11/26/2024: Unremarkable Ferritin, 11/27/2024: 629.7 EEG, 11/29/2024: Normal MRI head, 11/27/2024: 1. No acute cerebrovascular ischemia. 2. Moderate to advanced chronic microvascular ischemic changes. 3. Bilateral mastoid effusions vital signs Vital Sign Date Time Temp Pulse Resp B/P (MAP) Pulse Ox O2 Delivery O2 Flow Rate FiO2 12/02/24 09:52 130/82 12/02/24 09:00 98.6 60 20 95 98.6 12/02/24 08:00 Room Air* 0 21 Total Intake and Output 12/01/24 12/01/24 12/02/24 15:00 23:00 07:00 Intake Total 100 ml 644 ml 200 ml Output Total 600 ml 675 ml Balance 100 ml 44 ml -475 ml medications Current Medications Medications Dose Ordered Sig/Nahid Route Start Time Stop Time Status Last Admin Dose Admin Nitroglycerin 0.4 mg Q5MINP PRN SL 11/25/24 21:45 Morphine Sulfate 2 mg Q30M PRN IV 11/25/24 21:45 Diagnostic Test (Pha) 1 strip ACHS 11/25/24 22:00 12/02/24 06:31 1 STRIP Insulin Human Regular ACHS SC 11/25/24 22:00 Dextrose 50 ml UD PRN IV 11/25/24 21:45 Piperacillin Sod/ Tazobactam Sod 100 ml @ 25 mls/hr Q12HR IV 11/26/24 10:00 12/02/24 09:51 25 MLS/HR Ondansetron HCl 4 mg Q6HPRN PRN IV 11/26/24 07:15 11/30/24 09:00 4 MG Pramipexole Dihydrochloride 0.25 mg HS PO 11/28/24 22:00 12/01/24 21:37 0.25 MG Furosemide 40 mg DAILY IV 11/29/24 14:30 12/02/24 09:52 40 MG objective General: the patient is well developed and nourished. No acute distress. MENTAL STATUS: Subjective SPEECH, LANGUAGE, HIGHER CORTICAL FUNCTION: no aphasia or dysathria. CRANIAL NERVES: Pupils are equal, round and reactive. EOMs full and conjugate. Facial sensation intact in all three divisions bilaterally. Mandibular strength intact. Facial muscles symmetrical and strength intact. SENSATION: Sensation to touch and pinprick is fine MOTOR: Normal tone in the upper and lower extremity. Normal muscle bulk. No fasciculations. Mild tremors in the arms and legs, worse on posturing. Muscle strength of the major groups in the extremities is 5/5. REFLEXES: Deep tendon reflexes are symmetrical. No pathological reflexes. CEREBELLAR/COORDINATION: Finger to nose is normal bilaterally. GAIT/STATION: deferred. laboratory and microbiology Laboratory Tests 12/02/24 09:27 Test 12/02/24 09:27 Range/Units Serum Glucose 112 H 74-106 mg/dL Problem List Tremors, likely myoclonus triggered by dehydration, kidney failure Metabolic encephalopathy Restless leg syndrome Assessment/Plan Monitoring Supportive treatment Telemetry Mirapex 0.25 mg in the evening Nephrology consultation This medical document was created using an electronic medical record system with [employer] computerized dictation system. Although this document has been carefully reviewed, there may still be some phonetic and typographical errors. These areas are purely typographical due to imperfections of the software programs, and do not reflect any compromise in the patient's medical car Prognosis poor Dietary Evaluation Review Recommendations by RD: Dietary education by RD Comments: 1) Initiate Nepro Carb Steady @ 8 fl oz qd 2) Encourage optimal PO intake 3) Refer to outpatient RD/CDCES for weight management 4) Follow-up with cardiology and nephrology 5) Continue to monitor I&O, labs, and skin integrity Expected Outcomes/Goals: 1) appetite and labs to improve 2) f/u in 3-5 days Plan discussed with: Other ANGEL LUIS WYATT MD Dec 02, 2024 10:53
--- NOTE | 2024-12-02 11:25 | DVHPN2 ---
Progress Note - Dictate Date Seen: Dec 02, 2024 Medical Necessity Reason Pt with a Central, PICC or Fol: Yes The following are medically ne: Ya Catheter Subjective Patient comfortable. No new complaints. vital signs Vital Sign Date Time Temp Pulse Resp B/P (MAP) Pulse Ox O2 Delivery O2 Flow Rate FiO2 12/02/24 09:52 130/82 12/02/24 09:00 98.6 60 20 95 98.6 12/02/24 08:00 Room Air* 0 21 Total Intake and Output 12/01/24 12/01/24 12/02/24 15:00 23:00 07:00 Intake Total 100 ml 644 ml 200 ml Output Total 600 ml 675 ml Balance 100 ml 44 ml -475 ml medications Current Medications Medications Dose Ordered Sig/Nahid Route Start Time Stop Time Status Last Admin Dose Admin Nitroglycerin 0.4 mg Q5MINP PRN SL 11/25/24 21:45 Morphine Sulfate 2 mg Q30M PRN IV 11/25/24 21:45 Diagnostic Test (Pha) 1 strip ACHS 11/25/24 22:00 12/02/24 06:31 1 STRIP Insulin Human Regular ACHS SC 11/25/24 22:00 Dextrose 50 ml UD PRN IV 11/25/24 21:45 Piperacillin Sod/ Tazobactam Sod 100 ml @ 25 mls/hr Q12HR IV 11/26/24 10:00 12/02/24 09:51 25 MLS/HR Ondansetron HCl 4 mg Q6HPRN PRN IV 11/26/24 07:15 11/30/24 09:00 4 MG Pramipexole Dihydrochloride 0.25 mg HS PO 11/28/24 22:00 12/01/24 21:37 0.25 MG Furosemide 40 mg DAILY IV 11/29/24 14:30 12/02/24 09:52 40 MG objective General appearance: No acute distress Respiratory: Lungs clear to auscultation. No wheezing, crackles Cardiovascular: Regular rate and rhythm, no murmurs. No edema Abdomen: Soft, nondistended, nontender, bowel sounds present MSK: Normal range of motion. Neuro: Alert. Bilateral upper extremity tremors improved Psych: Appropriate mood and affect. laboratory and microbiology Laboratory Tests 12/02/24 09:27 Test 12/02/24 09:27 Range/Units Serum Glucose 112 H 74-106 mg/dL Assessment/Plan 1. LINDA, due to VMN from nausea and vomiting 2. Upper Extremity Tremors 3. Non-obstructive nephrolithiasis 4. Morbid Obesity Plan: - Nephrology consulted for LINDA. No plan for HD at this time. LINDA improving. Concern for underlying ATN. Lasix started. GFR remains stable 8-9/ - TTE does not show any CHF - Strict I's and O's. Continue Ya catheter - Continue Zosyn for UTI - Neurology consulted for tremors. Started on pramipexole with improvement for restless leg syndrome. Tremors likely due to metabolic etiology, likely uremia. -MRI brain does not reveal any cerebral vascular ischemia. Shows moderate to advanced chronic microvascular ischemic changes. -PT eval ordered, pt refused PT due to low back pain and states she is not interested in further PT. Was previously at prior SNF and was not doing PT there as well for same reasons. -DC pending continued improvement in renal function. Pt noted she was residing at [facility]. - Full code Dietary Evaluation Review Recommendations by RD: Dietary education by RD Comments: 1) Initiate Nepro Carb Steady @ 8 fl oz qd 2) Encourage optimal PO intake 3) Refer to outpatient RD/CD[facility] for weight management 4) Follow-up with cardiology and nephrology 5) Continue to monitor I&O, labs, and skin integrity Expected Outcomes/Goals: 1) appetite and labs to improve 2) f/u in 3-5 days Plan discussed with: Patient CHIQUI KARIMIVic Calhoun DO Dec 02, 2024 11:25
--- NOTE | 2024-12-02 13:45 | DVHDS2 ---
Discharge Summary Date of Admission Nov 25, 2024 at 21:37 Date of Discharge: Dec 03, 2024 Labs/Diagnostic Data: Laboratory Results Test 12/02/24 11:49 12/02/24 09:27 11/27/24 05:14 11/26/24 17:00 POC Glucose 96 mg/dl (70-106) White Blood Count 9.4 10^3/uL (4.4-10.8) Red Blood Count 3.31 10^6/uL (4.0-5.20) Hemoglobin 9.7 g/dL (12.2-16.2) Hematocrit 29.2 % (36.0-46.0) Mean Corpuscular Volume 88.0 fL (80.0-100.0) Mean Corpuscular Hemoglobin 29.3 pg (28.0-32.0) Mean Corpuscular Hemoglobin Concent 33.3 g/dL (32.0-36.0) Red Cell Distribution Width 14.6 % (11.8-14.3) Platelet Count 214 10^3/uL (140-450) Mean Platelet Volume 8.3 fL (6.9-10.8) Neutrophils (%) (Auto) 64.7 % (37.0-80.0) Lymphocytes (%) (Auto) 12.8 % (10.0-50.0) Monocytes (%) (Auto) 11.8 % (0.0-12.0) Eosinophils (%) (Auto) 9.5 % (0.0-7.0) Basophils (%) (Auto) 1.2 % (0.0-2.0) Neutrophils # (Auto) 6.1 10 ^3/uL (1.6-8.6) Lymphocytes # (Auto) 1.2 10 ^3/uL (0.4-5.4) Monocytes # (Auto) 1.1 10 ^3/uL (0-1.3) Eosinophils # (Auto) 0.9 10 ^3/uL (0-0.8) Basophils # (Auto) 0.1 10 ^3/uL (0-0.2) Nucleated Red Blood Cells 0.0 % Sodium Level 144 mmol/L (136-145) Potassium Level 3.7 mmol/L (3.5-5.1) Chloride Level 107 mmol/L (98-107) Carbon Dioxide Level 26 mmol/L (20-31) Anion Gap 11 (5-15) Blood Urea Nitrogen 37 mg/dL (9-23) Creatinine 4.70 mg/dL (0.550-1.02) Glomerular Filtration Rate Calc 9 mL/min (>90) BUN/Creatinine Ratio 7.9 (10.0-20.0) Serum Glucose 112 mg/dL (74-106) Calcium Level 9.0 mg/dL (8.7-10.4) Total Bilirubin 0.4 mg/dL (0.2-1.0) Aspartate Amino Transferase (AST) 17 U/L (<34) Alanine Aminotransferase (ALT) 23 U/L (7-40) Alkaline Phosphatase 79 U/L (46-116) Total Protein 5.0 g/dL (5.7-8.2) Albumin 3.1 g/dL (3.2-4.8) Iron Level 61 ug/dL (50-170) Total Iron Binding Capacity 161 ug/dL (250-425) Percent Iron Saturation 37.9 % (15-50) Ferritin 629.7 ng/mL (10-291) Urine Creatinine 106.87 mg/dL (30.0-125.0) Urine Protein/Creatinine Ratio 0.74 Urine Sodium 25 mmol/L (40-220) Urine Total Protein 79.0 mg/dL (1-14) Test 11/26/24 06:32 11/25/24 22:18 11/25/24 19:08 11/25/24 18:35 Stool Occult Blood Negative (Negative) Stool Occult Blood Sample #3 (Negative) Stool for White Cells Few Troponin I High Sensitivity 21 ng/L (</=34) Lactic Acid Level 1.8 mmol/L (0.4-2.0) Magnesium Level 2.1 mg/dL (1.6-2.6) B-Type Natriuretic Peptide 142.51 pg/mL (0-100) Lipase 50 U/L (12-53) Urine Color Colorless (Yellow) Urine Clarity Turbid (Clear) Urine pH 5.0 (5.0-9.0) Urine Specific [place] 1.013 (1.001-1.035) Urine Protein Trace (Negative) Urine Ketones Negative (Negative) Urine Blood 3+ /uL (Negative) Urine Nitrite Negative (Negative) Urine Bilirubin Negative (Negative) Urine Urobilinogen Normal mg/dL (Negative) Urine Leukocyte Esterase 3+ /uL (Negative) Urine RBC 24 /hpf (0 - 4) Urine WBC Clumps Present /hpf (None Seen) Urine Microscopic WBC 39 /HPF (0-5) Urine Squamous Epithelial Cells Few /hpf (<5) Urine Amorphous Crystals Few /hpf (None Seen) Urine Bacteria Many /hpf (None Seen) Urine Hyaline Casts Few /lpf (0 - 2) Urine Mucus Few (None Seen) Urine Glucose Normal mg/dL (Normal) Other Laboratory Tests 12/02/24 09:27 Brief Hx & Hospital Course: Patient is a 79-year-old female past medical history of CHF, CKD stage III, CKD who presented from [facility] due to intermittent nausea and vomiting for the past month. Patient also noted to have tremors for the past 2 weeks. Patient was hypotensive with systolic blood pressure in the 70s on admission. Creatinine was noted to be 6.19 with GFR of 6. Baseline creatinine is noted to be about 1.5 2 years ago. Nephrology was consulted. CT and pelvis was done which showed multiple right renal calculi with the largest measuring 14 x 18 mm in the right renal pelvis. Ultrasound renal did not show any hydronephrosis. There were no signs of pyelonephritis. No other acute abnormalities was noted. Patient was given IV fluids and Lasix during her hospitalization. Prior to discharge, her creatinine was noted to improved to 4.60 with GFR of 9. It was recommended that patient continue taking Lasix 40 mg p.o. twice daily for 7 days until follow-up with nephrology and repeat labs. Patient was tested for C. difficile and Shiga toxin which was negative. Urine culture was done which showed E. coli. Patient was treated with Zosyn. Patient was not discharged on any further antibiotics as she received a sufficient course. No signs of sepsis noted based off her laboratory findings. Presentation was consistent with hypovolemia secondary to dehydration. Patient was also evaluated by neurology due to tremors. She was started on pramipexole which resolved her tremors. MRI brain was done which did not reveal any acute abnormalities. Patient discharged back to her residential care facility. She is going to have repeat BMP in 1 week and follow-up with nephrology. [facility] case management arrange follow-up appointments. Condition at Discharge: Good Final Diagnosis/Problems List 1. LINDA, due to VMN from nausea and vomiting 2. Upper Extremity Tremors 3. Non-obstructive nephrolithiasis 4. Morbid Obesity 5. Type 2 DM 6. CHF, Chronic, Diastolic not excluded 7. Hypertension 8. Restless Leg Syndrome Discharge Disposition: Residential [facility] Discharge Statement: "Patient was advised to return to the ER or call 911 if any headaches, dizziness, shortness of breath, chest pain, abdominal pain, bleeding, fevers, or worsening of medical condition. Patient was counseled about treatment plan, medications, possible side effects, patientverbalized understanding. All questions were answered to the best of my ability. This discharge took greater then 30 minutes in planning, reviewing documentation, counseling the patient, and discussing with other team members." ASSESSMENT ASSESSMENT Assessment LION KARIMI DO Dec 02, 2024 13:45
[2024-12-02] MEDS: ACETAMINOPHEN 325 MG TAB PO PRN (15:30)
--- NOTE | 2024-12-02 19:02 | DVHPN2 ---
Progress Note Date Seen: Dec 02, 2024 Medical Necessity Reason Pt with a Central, PICC or Fol: Yes The following are medically ne: Ya Catheter Subjective Patient reports: No new complaints Review of Systems: Deferred Objective vital signs Vital Sign Date Time Temp Pulse Resp B/P (MAP) Pulse Ox O2 Delivery O2 Flow Rate FiO2 12/02/24 16:28 98.7 59 18 146/71 (96) 94 98.7 12/02/24 08:00 Room Air* 0 21 Total Intake and Output 12/01/24 12/01/24 12/02/24 14:59 22:59 06:59 Intake Total 100 ml 644 ml 200 ml Output Total 600 ml 675 ml Balance 100 ml 44 ml -475 ml medications Current Medications Medications Dose Ordered Sig/Nahid Route Start Time Stop Time Status Last Admin Dose Admin Nitroglycerin 0.4 mg Q5MINP PRN SL 11/25/24 21:45 Morphine Sulfate 2 mg Q30M PRN IV 11/25/24 21:45 Diagnostic Test (Pha) 1 strip ACHS 11/25/24 22:00 12/02/24 17:29 1 STRIP Insulin Human Regular ACHS SC 11/25/24 22:00 Dextrose 50 ml UD PRN IV 11/25/24 21:45 Piperacillin Sod/ Tazobactam Sod 100 ml @ 25 mls/hr Q12HR IV 11/26/24 10:00 12/02/24 09:51 25 MLS/HR Ondansetron HCl 4 mg Q6HPRN PRN IV 11/26/24 07:15 11/30/24 09:00 4 MG Pramipexole Dihydrochloride 0.25 mg HS PO 11/28/24 22:00 12/01/24 21:37 0.25 MG Furosemide 40 mg DAILY IV 11/29/24 14:30 12/02/24 09:52 40 MG Acetaminophen 650 mg Q6HP PRN PO 12/02/24 15:15 12/02/24 15:30 650 MG Examination: GENERAL:Normal, LUNGS:Normal, MSK:Normal, SKIN:Normal laboratory and microbiology Laboratory Tests 12/02/24 09:27 Test 12/02/24 09:27 Range/Units Serum Glucose 112 H 74-106 mg/dL Microbiology Date/Time Source Procedure Growth Status 11/26/24 17:00 Voided Urine Urine Culture - Final Escherichia coli Complete 11/26/24 06:32 Stool Stool Culture - Final Complete 11/26/24 06:32 Stool Shiga Toxin I & II - Final Complete 11/26/24 06:32 Stool Clostridium difficile Toxin Assay - Final Complete 11/25/24 19:08 Blood Blood Culture - Final NO GROWTH AFTER 5 DAYS OF INCUBATION. Complete Problem List/Assessment/Plan Problem List/Assessment/Plan Acute kidney injury hemodynamic in the setting of urinary tract infection Altered mental state secondary to sepsis Chronic kidney disease stage 3 as of 2022 Urinary tract infection Kidney stones Anemia Recommendations Renal function stable continue IV Lasix daily Urine output slightly better check phos iv iron no need for HD pls arrange outpt f/u n our office in 1-2 weeks after dc Plan discussed with: Patient My Orders My Orders Orders - SUZANNE RODRIGUEZ MD Procedure Category Date Status Time Phosphorus LAB 12/03/24 Verified 04:00 Iron Ivpb PHA 12/02/24 Transmitted 19:00 Basic Metabolic Panel LAB 12/03/24 Verified 04:00 Dietary Evaluation Review Recommendations by RD: Dietary education by RD Comments: 1) Initiate Nepro Carb Steady @ 8 fl oz qd 2) Encourage optimal PO intake 3) Refer to outpatient RD/CD[facility] for weight management 4) Follow-up with cardiology and nephrology 5) Continue to monitor I&O, labs, and skin integrity Expected Outcomes/Goals: 1) appetite and labs to improve 2) f/u in 3-5 days SUZANNE RODRIGUEZ MD Dec 02, 2024 19:02
[2024-12-02] MEDS: IRON SUCROSE COMPLEX 110 ML IV SCH (20:40)
[2024-12-03] VITALS (7 sets, daily range): BP systolic 142–154; BP diastolic 67–78; PULSE 55–63; RESP 16–18; TEMP 36.8; O2SAT 94–98
[2024-12-03 05:51] LABS: Chloride 104 mmol/L (98-107); Sodium 142 mmol/L (136-145)
[2024-12-03 05:52] LABS: Carbon Dioxide 28 mmol/L (20-31)
[2024-12-03 05:53] LABS: Anion Gap 10 (5-15)
[2024-12-03 05:54] LABS: Calcium 8.3 mg/dL (8.7-10.4); Potassium 3.3 mmol/L (3.5-5.1)
[2024-12-03 05:58] LABS: BUN/Creatinine Ratio 7.4 (10.0-20.0); Glucose 82 mg/dL (74-106)
[2024-12-03 05:59] LABS: Blood Urea Nitrogen 34 mg/dL (9-23)
[2024-12-03 06:00] LABS: Phosphorus 3.1 mg/dL (2.4-5.1)
[2024-12-03] MEDS: POTASSIUM EFFERVESENT TAB 25 MEQ PO ONE (11:32)
[2024-12-03] MEDS ORDERED: FURO1TAB31 PO (11:49)
[2024-12-03] MEDS ORDERED: POTA-36 PO (11:51)
--- NOTE | 2024-12-03 17:10 | DVHPN2 ---
Progress Note Date Seen: Dec 03, 2024 Medical Necessity Reason Pt with a Central, PICC or Fol: Yes The following are medically ne: Ya Catheter Subjective Patient reports: No new complaints Review of Systems: Deferred Objective vital signs Vital Sign Date Time Temp Pulse Resp B/P (MAP) Pulse Ox O2 Delivery O2 Flow Rate FiO2 12/03/24 16:34 36.8 63 16 95 12/03/24 13:00 153/73 (99) 12/03/24 08:00 Room Air* 0 21 Total Intake and Output 12/02/24 12/02/24 12/03/24 15:00 23:00 07:00 Intake Total 100 ml 690 ml 600 ml Output Total 650 ml 240 ml Balance 100 ml 40 ml 360 ml medications Current Medications Medications Dose Ordered Sig/Nahid Route Start Time Stop Time Status Last Admin Dose Admin Nitroglycerin 0.4 mg Q5MINP PRN SL 11/25/24 21:45 Morphine Sulfate 2 mg Q30M PRN IV 11/25/24 21:45 Diagnostic Test (Pha) 1 strip ACHS 11/25/24 22:00 12/03/24 06:16 1 STRIP Insulin Human Regular ACHS SC 11/25/24 22:00 Dextrose 50 ml UD PRN IV 11/25/24 21:45 Piperacillin Sod/ Tazobactam Sod 100 ml @ 25 mls/hr Q12HR IV 11/26/24 10:00 12/03/24 09:54 25 MLS/HR Ondansetron HCl 4 mg Q6HPRN PRN IV 11/26/24 07:15 11/30/24 09:00 4 MG Pramipexole Dihydrochloride 0.25 mg HS PO 11/28/24 22:00 12/02/24 21:02 0.25 MG Furosemide 40 mg DAILY IV 11/29/24 14:30 12/03/24 11:32 40 MG Acetaminophen 650 mg Q6HP PRN PO 12/02/24 15:15 12/03/24 01:32 650 MG Iron Sucrose 110 ml @ 110 mls/hr DAILY@1200 IV 12/02/24 19:00 12/06/24 12:59 12/03/24 15:58 110 MLS/HR laboratory and microbiology Laboratory Tests 12/03/24 04:58 12/02/24 09:27 Test 12/03/24 04:58 Range/Units Serum Glucose 82 74-106 mg/dL Microbiology Date/Time Source Procedure Growth Status 11/26/24 17:00 Voided Urine Urine Culture - Final Escherichia coli Complete 11/26/24 06:32 Stool Stool Culture - Final Complete 11/26/24 06:32 Stool Shiga Toxin I & II - Final Complete 11/26/24 06:32 Stool Clostridium difficile Toxin Assay - Final Complete 11/25/24 19:08 Blood Blood Culture - Final NO GROWTH AFTER 5 DAYS OF INCUBATION. Complete Problem List/Assessment/Plan Problem List/Assessment/Plan Acute kidney injury hemodynamic in the setting of urinary tract infection Altered mental state secondary to sepsis Chronic kidney disease stage 3 as of 2022 Urinary tract infection Kidney stones Anemia Recommendations Renal function stable continue IV Lasix daily--on discharge switch to Lasix 40 mg p.o. b.i.d. Urine output slightly better check phos iv iron no need for HD pls arrange outpt f/u n our office in 1-2 weeks after dc Plan discussed with: Patient My Orders My Orders Orders - SUZANNE RODRIGUEZ MD Procedure Category Date Status Time Iron Sucrose Complex PHA 12/02/24 In Process (Venofer) 19:00 Dietary Evaluation Review Recommendations by RD: Dietary education by RD Comments: 1) Initiate Nepro Carb Steady @ 8 fl oz qd 2) Encourage optimal PO intake 3) Refer to outpatient RD/CD[facility] for weight management 4) Follow-up with cardiology and nephrology 5) Continue to monitor I&O, labs, and skin integrity Expected Outcomes/Goals: 1) appetite and labs to improve 2) f/u in 3-5 days SUZANNE RODRIGUEZ MD Dec 03, 2024 17:10
== END 2024-12-03 18:00 | disposition home or self-care (01) | DRG 682 ==
LOC: EDBD 17:56 → ER 17:56 → OVERFLOW 21:37 → TELE-EAST 11-26 16:12
PROVIDERS: ADMIT Student in an Organized Health Care Education/Training Program; ATTEND Student in an Organized Health Care Education/Training Program
PROC: 05HC33Z Insertion of Infusion Device into Left Basilic Vein, Percutaneous Approach (ICD-10-PCS; principal; 2024-11-26)
PROC: B54NZZA Ultrasonography of Left Upper Extremity Veins, Guidance (ICD-10-PCS; 2024-11-26)
DX: N17.0 Acute kidney failure with tubular necrosis (principal); G93.41 Metabolic encephalopathy; I50.32 Chronic diastolic (congestive) heart failure; N30.00 Acute cystitis without hematuria; D68.69 Other thrombophilia; I13.0 Hypertensive heart and chronic kidney disease with heart failure and stage 1 through stage 4 chronic kidney disease, or unspecified chronic kidney disease; Z68.41 Body mass index [BMI] 40.0-44.9, adult; E87.5 Hyperkalemia; E86.0 Dehydration; N20.0 Calculus of kidney; G25.81 Restless legs syndrome; G25.3 Myoclonus; I48.0 Paroxysmal atrial fibrillation; E66.01 Morbid (severe) obesity due to excess calories; E11.22 Type 2 diabetes mellitus with diabetic chronic kidney disease; E61.1 Iron deficiency; E78.5 Hyperlipidemia, unspecified; E86.1 Hypovolemia; I25.10 Atherosclerotic heart disease of native coronary artery without angina pectoris; F32.A Depression, unspecified; K42.9 Umbilical hernia without obstruction or gangrene; N18.30 Chronic kidney disease, stage 3 unspecified; I25.2 Old myocardial infarction; Z79.84 Long term (current) use of oral hypoglycemic drugs; Z79.899 Other long term (current) drug therapy; Z80.6 Family history of leukemia; Z87.442 Personal history of urinary calculi
CPT/HCPCS: 36415; 70551; 71045; 74176; 76775; 80048; 80053; 81001; 82270; 82570; 82728; 82962; 83540; 83550; 83605; 83690; 83735; 83880; 84100; 84156; 84300; 84484; 85025; 85048; 87040; 87045; 87086; 87088; 87186; 93005; 93306; 94640; 95819; 96365; 96375; 97110; 97163; 97530; 99291; G0378; J1756; J1815; J2405; J2543